=== PATIENT | female | born 1975 | race Caucasian/White ===

== ENCOUNTER 2017-05-23 15:30 | Emergency (ER) | payer MEDICAID ==
[~2017-05-23] VITALS: Ht 165.1 cm; Wt 82.6 kg
[~2017-05-23 15:30] MED LIST: ALBUTEROL2 PUFFS/17 IN; APAP/BUTALBITAL1 TA1 PO; ATIVAN1 M1 PO; CIPRO 500MG TA500 MG PO; CLINDAMYCIN HC150 MG PO; DARVOCET-N 1001 EACH PO; DIFLUCAN150 MG PO; DOXYCYCLINE HY100 M3 PO; DOXYCYCLINE150 M1 PO; FLAGYL 500MG.500 MG PO; FLAGYL500 M1 PO; FLEXERIL10 MG PO; IBU-8800 MG PO; IBUPROFEN400 MG PO; INDOCIN25 MG PO; KEFLEX 500MG.500 MG PO; LORTAB 5/500 501 TAB PO; LORTAB 500 MG-71 TAB PO; MEDROL 4MG. DOSE4 MG PO; Monodox100 MG PO; NOMEDS; ONE DAILY WOMEN1 TAB PO; PERCOCET 325 MG1 TA3 PO; PHENERGAN 25MG.25 M1 PO; PYRIDIUM 200MG200 MG PO; SULFAMETHOXAZOL1 TA6 PO; TESSALON PERLE200 MG PO; TORADOL10 M1 PO; ULTRAM 50 MG TA50 MG PO; VIBRAMYCIN 100100 MG PO; VICODIN 5/500 T1 TAB PO; VICODIN 7.5/501 EACH PO; VOLTAREN75 MG PO; XANAX 1MG TABLET1 MG PO; ZITHROMAX Z-PA250 M2 PO; ZYRTEC10 M4 PO
--- OUTSIDE RECORDS SUMMARY | 2017-05-23 16:02 | External Medical Summary Rpt | CCD ---
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 bl e 23 32 IN 00 03 04 00 14 7 CV 10 No Ac DO 37 -0 -1 .0 S 24 t ti ME 80 9- 7- 00 PH 43 Av ve TH 14 20 20 AR ai AC 30 08 08 MA la IN 1 CY bl e 25 23 32 MG CA PS UL E CL 00 02 03 00 30 15 CV 94 No Ac ON 09 -2 -2 .0 S 72 t ti AZ 30 0- 6- 00 PH 38 Av ve EP 83 20 20 AR ai AM 20 08 08 MA la 1 CY bl 0. e 5 23 MG 32 TA BL ET Vital Signs 06-15-2013 15:14 Name Value Interpretat Reference Comment ion Range Body 98.1 [degF] Temperature BP 94 mm[Hg] Diastolic BP Systolic 143 mm[Hg] Heart 89 /min Rate/Pulse O2% 98 % Respiratory 18 /min Rate 06-15-2013 15:10 Name Value Interpretat Reference Comment ion Range Body 98.1 [degF] Temperature 06-15-2013 13:55 Name Value Interpretat Reference Comment ion Range BP 71 mm[Hg] Diastolic BP Systolic 134 mm[Hg] Heart 76 /min Rate/Pulse O2% 98 % Respiratory 18 /min Rate 05-01-2013 14:53 Name Value Interpretat Reference Comment ion Range BP 92 mm[Hg] Diastolic BP Systolic 136 mm[Hg] Heart 80 /min Rate/Pulse O2% 97 % Respiratory 18 /min Rate 05-01-2013 13:37 Name Value Interpretat Reference Comment ion Range BP 72 mm[Hg] Diastolic BP Systolic 131 mm[Hg] Heart 78 /min Rate/Pulse O2% 95 % Respiratory 20 /min Rate 01-07-2013 23:19 Name Value Interpretat Reference Comment ion Range BP 87 mm[Hg] Diastolic BP Systolic 137 mm[Hg] Heart 102 /min Rate/Pulse O2% 95 % Respiratory 20 /min Rate 01-07-2013 02:52 Name Value Interpretat Reference Comment ion Range BP 76 mm[Hg] Diastolic BP Systolic 119 mm[Hg] Heart 72 /min Rate/Pulse O2% 98 % Respiratory 20 /min Rate 01-07-2013 01:55 Name Value Interpretat Reference Comment ion Range Body 97.9 [degF] Temperature BP 88 mm[Hg] Diastolic BP Systolic 135 mm[Hg] Heart 77 /min Rate/Pulse O2% 94 % Respiratory 20 /min Rate 10-03-2012 13:43 Name Value Interpretat Reference Comment ion Range BP 78 mm[Hg] Diastolic BP Systolic 128 mm[Hg] Heart 90 /min Rate/Pulse O2% 97 % Respiratory 20 /min Rate 10-03-2012 12:38 Name Value Interpretat Reference Comment ion Range BP 85 mm[Hg] Diastolic BP Systolic 109 mm[Hg] Heart 94 /min Rate/Pulse O2% 97 % Respiratory 20 /min Rate Results Labs Lab Lab Date Result Refere Interp Status Commen Order Detail nces retati t Range on CHLAMYDIA AND GONORRHEA TESTING (10-10-2015 13:30) Chlamyd NEGATIV complet ia 016 E ed trachom 13:30 atis rRNA [Presen ce] in Unspeci fied specime n by Probe & target amplifi cation method Neisser NEGATIV complet ia 016 E ed gonorrh 13:30 oeae rRNA [Presen ce] in Unspeci fied specime n by Probe & target amplifi cation method CHLAMYDIA AND GONORRHEA TESTING (10-10-2015 13:30) COLLECT PATIENT complet OR 016 /[id number] ed 13:30 ETHNICI WHITE, complet TY 016 NON-HIS ed 13:30 PANIC KIT 04-27-2 complet EXPIRAT 016 016 ed ION 13:30 DATE SYMPTOM NO complet S 016 ed 13:30 REASON VOLUNTE complet FOR 016 ER/MEDI ed REQUEST 13:30 KATELYN PROBLEM SPECIME URINE complet N 016 ed SOURCE 13:30 PREGNAN NO complet T 016 ed 13:30 CHART NA complet NUMBER 016 ed 13:30 Chlamyd Pending complet ia 016 ed trachom 13:30 atis rRNA [Presen ce] in Unspeci fied specime n by Probe & target amplifi cation method Neisser Pending complet ia 016 ed gonorrh 13:30 oeae rRNA [Presen ce] in Unspeci fied specime n by Probe & target amplifi cation method COMPREHENSIVE METABOLIC PANEL (06-15-2013 13:30) Glucose 105 74-106 complet 013 mg/dL ed Bld-mCn 13:30 c BUN 9 mg/dL 7-18 complet Bld-mCn 013 ed c 13:30 Creat 0.9 0.6-1.0 complet SerPl-m 013 mg/dL ed Cnc 13:30 Creat 120 50-200 complet Cl 013 ML/MIN ed predict 13:30 ed SerPl C-G-vRa te GFR/BSA 70 59- complet .pred 013 ML/MIN ed SerPl 13:30 Schwart z-vRate Sodium 142 136-145 complet SerPl-s 013 mmoL/L ed Cnc 13:30 Potassi 3.6 3.5-5.1 complet um 013 mmoL/L ed SerPl-s 13:30 Cnc Chlorid 06-15-2 103 98-107 complet e 013 mmoL/L ed SerPl-s 13:30 Cnc CO2 06-15-2 30 21.0-32 complet SerPl-s 013 mmoL/L .0 ed Cnc 13:30 Calcium 06-15-2 9.3 8.5-10. complet 013 mg/dL 1 ed SerPl-m 13:30 Cnc Prot 06-15-2 8.8 6.4-8.2 complet SerPl-m 013 gm/dL ed Cnc 13:30 Albumin 06-15-2 4.5 3.4-5.0 complet 013 gm/dL ed SerPl-m 13:30 Cnc Globuli 06-15-2 4.3 1.3-3.2 complet n 013 gm/dL ed Ser-mCn 13:30 c Albumin 06-15-2 1.0 UNK 1.1-1.8 complet /Glob 013 ed SerPl-m 13:30 Rto Bilirub 06-15-2 0.5 0.2-1.0 complet 013 mg/dL ed SerPl-m 13:30 Cnc AST 06-15-2 163 U/L 15-37 complet SerPl-c 013 ed Cnc 13:30 ALT 06-15-2 304 U/L 30-65 High complet SerPl-c 013 alert ed Cnc 13:30 ALP 06-15-2 154 U/L 50-136 complet SerPl-c 013 ed Cnc 13:30 LIPASE (06-15-2013 13:30) LIPASE 06-15-2 144 U/L 73-393 complet 013 ed 13:30 CBC with AUTO DIFF (06-15-2013 13:30) WBC # 19-2 8.9 4.8-10. complet Bld 013 K/MM3 8 ed Auto 13:30 RBC # 06-15-2 4.75 4.2-5.4 complet Bld 013 M/mm3 ed Auto 13:30 Hgb 06-15-2 14.8 12.2-16 complet Bld-mCn 013 g/dL .2 ed c 13:30 Hct Fr 06-15- 41.9 % 37.0-47 complet Bld 013 .0 ed 13:30 MCV RBC 06-15- 88.2 fl 82.2-97 complet 013 .8 ed 13:30 MCH RBC 12-19-2 31.2 pg 27-31.2 complet Qn 013 ed Auto 13:30 MEAN 12-19-2 35.3 31.8-35 complet CORPUSC 013 g/dl .4 ed ULAR 13:30 HGB CONC RDW RBC 12-19-2 13.3 % 11.5-17 complet Auto 013 .5 ed 13:30 Platele 12-19-2 420 142-424 complet t Bld 013 K/mm3 ed Ql 13:30 Manual MEAN 12-19-2 7.7 fl 7.4-10. complet PLATELE 013 4 ed T 13:30 VOLUME Granulo 12-19-2 65.2 % 37.0-80 complet cytes 013 .0 ed Fr Bld 13:30 Auto LYMPH % 12-19-2 28.3 % 10-50.0 complet 013 ed 13:30 Monocyt 12-19-2 4.8 % 1.7-9.3 complet es Fr 013 ed Bld 13:30 Auto Eosinop 12-19-2 1.0 % 0.1-12. complet hil Fr 013 0 ed Bld 13:30 Auto Basophi 12-19-2 0.6 % 0.1-2.0 complet ls Fr 013 ed Bld 13:30 Auto Granulo 12-19-2 5.8 1.8-7.8 complet cytes # 013 K/mm3 ed Bld 13:30 Auto Lymphoc 12-19-2 2.5 0.7-4.5 complet ytes Fr 013 K/mm3 ed Bld 13:30 Auto Monocyt 12-19-2 0.4 0.1-1.0 complet es # 013 K/mm3 ed Bld 13:30 Auto Eosinop 12-19-2 0.1 0.0-0.4 complet hil # 013 K/mm3 ed Bld 13:30 Auto Basophi 12-19-2 0.1 0-0.2 complet ls # 013 K/MM3 ed Bld 13:30 Auto URINALYSIS/COMPLETE (06-15-2013 13:30) URINE 12-19-2 YELLOW YELLOW complet COLOR 013 ed 13:30 URINE 12-19-2 CLEAR CLEAR complet APPEARA 013 ed NCE 13:30 URINE 12-19-2 NEGATIV NEG complet GLUCOSE 013 E ed - 13:30 DIPSTIC K URINE 12-19-2 NEGATIV NEG complet BILIRUB 013 E ed IN - 13:30 DIPSTIC K URINE 12-19-2 NEGATIV NEG complet KETONE 013 E mg/dL ed 13:30 URINE 12-19-2 1.025 1.005-1 complet SPECIFI 013 UNK .030 ed C 13:30 GRAVITY URINE -19-2 NEGATIV NEG complet BLOOD 013 E ed 13:30 URINE 12-19-2 6.5 UNK 5.0-8.5 complet PH 013 ed 13:30 URINE 12-19-2 NEGATIV NEG complet PROTEIN 013 E mg/dL ed - 13:30 DIPSTIC K URINE 12-19-2 0.2 NEG complet UROBILI 013 E.U./dL ed NOGEN - 13:30 DIPSTIC K URINE 12-19-2 POSITIV NEG complet NITRATE 013 E ed - 13:30 DIPSTIC K URINE 12-19-2 TRACE NEG complet LEUK 013 ed ESTERAS 13:30 E URINE 12-19-2 3-5 0 complet RBC 013 rbc/hpf ed 13:30 URINE 12-19-2 3-5 O complet WBC 013 wbc/hpf ed 13:30 URINE 12-19-2 5-10 0-5 complet SQUAMOU 013 #/hpf ed S CELLS 13:30 URINE 12-19-2 4+ O complet BACTERI 013 ed A 13:30 COMPREHENSIVE METABOLIC PANEL (05-01-2013 13:00) Glucose 86 74-106 complet 013 mg/dL ed Bld-mCn 13:00 c BUN 10 7-18 complet Bld-mCn 013 mg/dL ed c 13:00 Creat 0.7 0.6-1.0 complet SerPl-m 013 mg/dL ed Cnc 13:00 GFR 94 59- complet (ESTIMA 013 ML/MIN ed TANNER) 13:00 Sodium 141 136-145 complet SerPl-s 013 mmoL/L ed Cnc 13:00 Potassi 3.9 3.5-5.1 complet um 013 mmoL/L ed SerPl-s 13:00 Cnc Chlorid 107 98-107 complet e 013 mmoL/L ed SerPl-s 13:00 Cnc CO2 11-04-2 27 21.0-32 complet SerPl-s 013 mmoL/L .0 ed Cnc 13:00 Calcium 05-01-2 8.5 8.5-10. complet 013 mg/dL 1 ed SerPl-m 13:00 Cnc Prot 05-01-2 7.4 6.4-8.2 complet SerPl-m 013 gm/dL ed Cnc 13:00 Albumin 05-01-2 3.6 3.4-5.0 complet 013 gm/dL ed SerPl-m 13:00 Cnc Globuli 05-01-2 3.8 1.3-3.2 complet n 013 gm/dL ed Ser-mCn 13:00 c Albumin 05-01-2 0.9 UNK 1.1-1.8 complet /Glob 013 ed SerPl-m 13:00 Rto Bilirub 05-01-2 0.3 0.2-1.0 complet 013 mg/dL ed SerPl-m 13:00 Cnc AST 05-01-2 25 U/L 15-37 complet SerPl-c 013 ed Cnc 13:00 ALT 05-01-2 94 U/L 30-65 complet SerPl-c 013 ed Cnc 13:00 ALP 05-01-2 117 U/L 50-136 complet SerPl-c 013 ed Cnc 13:00 LIPASE (05-01-2013 13:00) LIPASE 05-01-2 76 U/L 73-393 complet 013 ed 13:00 CBC with AUTO DIFF (05-01-2013 13:00) WBC # 04-2 6.2 4.8-10. complet Bld 013 K/mm3 8 ed Auto 13:00 RBC # 11-04-2 4.15 4.2-5.4 complet Bld 013 M/mm3 ed Auto 13:00 Hgb 05-01-2 12.2 12.2-16 complet Bld-mCn 013 g/dL .2 ed c 13:00 Hct Fr 39.1 % 37.0-47 complet Bld 013 .0 ed 13:00 MCV RBC 94.3 fL 82.2-97 complet 013 .8 ed 13:00 MCH RBC 05-01-2 29.4 pg 27-31.2 complet Qn 013 ed Auto 13:00 MEAN 31.2 31.8-35 complet CORPUSC 013 g/dl .4 ed ULAR 13:00 HGB CONC RDW RBC 13.0 % 11.5-17 complet Auto 013 .5 ed 13:00 Platele 289 142-424 complet t Bld 013 K/mm3 ed Ql 13:00 Manual Granulo 55.1 % 37.0-80 complet cytes 013 .0 ed Fr Bld 13:00 Auto LYMPH % 05-01-2 40.3 % 10-50.0 complet 013 ed 13:00 Monocyt 05-01-2 4.6 % 1.7-9.3 complet es Fr 013 ed Bld 13:00 Auto Eosinop 05-01-2 0.0 % 0.1-12. complet hil Fr 013 0 ed Bld 13:00 Auto Basophi 05-01-2 0.0 % 0.1-2.0 complet ls Fr 013 ed Bld 13:00 Auto Granulo 05-01-2 3.4 1.8-7.8 complet cytes # 013 K/mm3 ed Bld 13:00 Auto Lymphoc 05-01-2 2.5 0.7-4.5 complet ytes Fr 013 K/mm3 ed Bld 13:00 Auto Monocyt 05-01-2 0.3 0.1-1.0 complet es # 013 K/mm3 ed Bld 13:00 Auto Eosinop 05-01-2 0.0 0.0-0.4 complet hil # 013 K/mm3 ed Bld 13:00 Auto Basophi 05-01-2 0.0 0-0.2 complet ls # 013 K/mm3 ed Bld 13:00 Auto B-HCG Ur Ql (05-01-2013 12:35) B-HCG NEGATIV NEG complet Ur Ql 013 E ed 12:35 URINALYSIS/COMPLETE (05-01-2013 12:35) URINE YELLOW YELLOW complet COLOR 013 ed 12:35 URINE 05-01-2 CLEAR CLEAR complet APPEARA 013 ed NCE 12:35 URINE NEGATIV NEG complet GLUCOSE 013 E ed - 12:35 DIPSTIC K URINE NEGATIV NEG complet BILIRUB 013 E ed IN - 12:35 DIPSTIC K URINE NEGATIV NEG complet KETONE 013 E mg/dL ed 12:35 URINE 1.015 1.005-1 complet SPECIFI 013 UNK .030 ed C 12:35 GRAVITY URINE 1+ NEG complet BLOOD 013 ed 12:35 URINE 6.0 UNK 5.0-8.5 complet PH 013 ed 12:35 URINE 2 NEGATIV NEG complet PROTEIN 013 E mg/dL ed - 12:35 DIPSTIC K URINE 2 0.2 NEG complet UROBILI 013 E.U./dL ed NOGEN - 12:35 DIPSTIC K URINE NEGATIV NEG complet NITRATE 013 E ed - 12:35 DIPSTIC K URINE NEGATIV NEG complet LEUK 013 E ed ESTERAS 12:35 E URINE 10-20 0 complet RBC 013 rbc/hpf ed 12:35 URINE OCC O complet WBC 013 wbc/hpf ed 12:35 URINE 05-01-2 OCC 0-5 complet SQUAMOU 013 #/hpf ed S CELLS 12:35 STREP SCREEN (RAPID) (01-07-2013 02:26) STREP NEGATIV complet SCREEN 013 E ed (RAPID) 02:26 COMPREHENSIVE METABOLIC PANEL (01-07-2013 00:47) Glucose 95 74-106 complet 013 mg/dL ed Bld-mCn 00:47 c BUN 11 7-18 complet Bld-mCn 013 mg/dL ed c 00:47 Creat 0.8 0.6-1.0 complet SerPl-m 013 mg/dL ed Cnc 00:47 GFR 81 59- complet (ESTIMA 013 ML/MIN ed TANNER) 00:47 Sodium 140 136-145 complet SerPl-s 013 mmoL/L ed Cnc 00:47 Potassi 4.3 3.5-5.1 complet um 013 mmoL/L ed SerPl-s 00:47 Cnc Chlorid 105 98-107 complet e 013 mmoL/L ed SerPl-s 00:47 Cnc CO2 07-13-2 30 21.0-32 complet SerPl-s 013 mmoL/L .0 ed Cnc 00:47 Calcium 01-07-2 8.4 8.5-10. complet 013 mg/dL 1 ed SerPl-m 00:47 Cnc Prot 13-2 7.4 6.4-8.2 complet SerPl-m 013 gm/dL ed Cnc 00:47 Albumin 01-07-2 3.8 3.4-5.0 complet 013 gm/dL ed SerPl-m 00:47 Cnc Globuli 01-07-2 3.6 1.3-3.2 complet n 013 gm/dL ed Ser-mCn 00:47 c Albumin 01-07-2 1.1 UNK 1.1-1.8 complet /Glob 013 ed SerPl-m 00:47 Rto Bilirub 01-07-2 0.4 0.2-1.0 complet 013 mg/dL ed SerPl-m 00:47 Cnc AST 01-07-2 45 U/L 15-37 complet SerPl-c 013 ed Cnc 00:47 ALT 01-07-2 98 U/L 30-65 complet SerPl-c 013 ed Cnc 00:47 ALP 01-07-2 174 U/L 50-136 complet SerPl-c 013 ed Cnc 00:47 B-HCG Ur Ql (01-07-2013 00:47) B-HCG 01-07-2 NEGATIV NEG complet Ur Ql 013 E ed 00:47 URINALYSIS/COMPLETE (01-07-2013 00:47) URINE 01-07-2 YELLOW YELLOW complet COLOR 013 ed 00:47 URINE 01-07-2 Sl CLEAR complet APPEARA 013 Cloudy ed NCE 00:47 URINE -13-2 NEGATIV NEG complet GLUCOSE 013 E ed - 00:47 DIPSTIC K URINE 13-2 NEGATIV NEG complet BILIRUB 013 E ed IN - 00:47 DIPSTIC K URINE -13-2 NEGATIV NEG complet KETONE 013 E mg/dL ed 00:47 URINE -13-2 1.015 1.005-1 complet SPECIFI 013 UNK .030 ed C 00:47 GRAVITY URINE 01-07-2 NEGATIV NEG complet BLOOD 013 E ed 00:47 URINE 13-2 6.0 UNK 5.0-8.5 complet PH 013 ed 00:47 URINE NEGATIV NEG complet PROTEIN 013 E mg/dL ed - 00:47 DIPSTIC K URINE 1.0 NEG complet UROBILI 013 E.U./dL ed NOGEN - 00:47 DIPSTIC K URINE NEGATIV NEG complet NITRATE 013 E ed - 00:47 DIPSTIC K URINE NEGATIV NEG complet LEUK 013 E ed ESTERAS 00:47 E URINE 50-100 0-5 complet SQUAMOU 013 #/hpf ed S CELLS 00:47 URINE 1+ O complet BACTERI 013 ed A 00:47 Procedures Procedure DOS Code Location Performer Comment [facility] 8604 JUAN JOSE INGRAM INCISION 0 [facility] HOSP W/DRAINAG [facility] INC E SKIN&SUBC UTANEOUS TISSUE Encounters Encounter Start End Date Code Location Performer Type Date [facility] JUAN JOSE - 7 7 [facility] [address] [facility] - [address] [facility] - 4 4 [facility] Emergency PRISCA Webb (ER) 3 13:31 3 15:20 [facility] Ez E. Emergency PRISCA Webb (ER) 3 12:30 3 14:56 [facility] Ez E. Emergency PRISCA Rendon MD (ER) 3 22:59 3 23:20 [facility] Emergency PRISCA Rendon MD (ER) 3 00:30 3 02:53 [facility] Emergency PRISCA ALBERTS MD (ER) 3 11:56 3 13:47 [facility] JUAN JOSE - 3 3 [facility] JUAN JOSE - 3 3 [facility] JUAN JOSE - 2 2 [facility] - 2 2 [facility] - 2 2 [facility] - 1 1 [facility] JOSE - 1 1 [facility] JOSE - 1 1 [facility] JOSE - 1 1 [facility] JOSE - 0 0 [facility] JOSE - 0 0 [facility] - 0 0 [facility] - 9 N [facility] JUAN JOSE - 9 9 [facility] - 9 N [facility] - 8 N [facility] [place] [id number] [address] [facility] JUAN JOSE - 8 8 [facility]
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
--- OUTSIDE RECORDS SUMMARY | 2017-05-23 16:03 | External Medical Summary Rpt | CCD ---
Author Author Conduent Organization Conduent Address Unknown Phone Unavailable Purpose Continuity of Care Document - through 2016
--- OUTSIDE RECORDS SUMMARY | 2017-05-23 16:03 | External Medical Summary Rpt ---
Author Author ZEYAD Wilde, [employer] Organization [employer] Address Unknown Phone Unavailable Results Chlamydia/GC Amplification Observa Value Referen Units Interpr Notes Date tion ce etation Range Chlamyd Negativ Negativ No No No Nov 28 ia e e informa informa informa 2017 trachom tion in tion in tion in 2:00 PM atis source source source rRNA data data data [Presen ce] in Unspeci fied specime n by Probe & target amplifi cation method Neisser Negativ Negativ No No Perform Nov 28 ia e e informa informa ed at: 2017 gonorrh tion in tion in CB - 2:00 PM oeae source source [facility] rRNA data data [Presen [place] ce] in [address], specime [place], [place] Probe & [id number] target 69Lab Directo amplifi r: cation Vincent [facility], Phone: [phone] CHLAMYDIA AND GONORRHEA TESTING Observa Value Referen Units Interpr Notes Date tion ce etation Range COLLECT PATIENT No No No No Oct 09 OR /C3881 informa informa informa informa 2016 tion in tion in tion in tion in 1:30 PM source source source source data data data data ETHNICI WHITE, No No No No Oct 09 TY NON-HIS informa informa informa informa 2016 PANIC tion in tion in tion in tion in 1:30 PM source source source source data data data data KIT 10-31-2 No No No No Oct 09 EXPIRAT 016 informa informa informa informa 2016 ION tion in tion in tion in tion in 1:30 PM DATE source source source source data data data data SYMPTOM NO No No No No Oct 09 S informa informa informa informa 2016 tion in tion in tion in tion in 1:30 PM source source source source data data data data REASON VOLUNTE No No No No Apr 14 FOR ER/MEDI informa informa informa informa 2016 REQUEST KATELYN tion in tion in tion in tion in 1:30 PM PROBLEM source source source source data data data data SPECIME URINE No No No No Sep 14 N informa informa informa informa 2016 SOURCE tion in tion in tion in tion in 1:30 PM source source source source data data data data PREGNAN NO No No No No Oct 09 T informa informa informa informa 2016 tion in tion in tion in tion in 1:30 PM source source source source data data data data CHART NA No No No No Sep 14 NUMBER informa informa informa informa 2016 tion in tion in tion in tion in 1:30 PM source source source source data data data data Chlamyd NEGATIV No No No NEGATIV Oct 09 ia E informa informa informa E 2016 trachom tion in tion in tion in RESULT= 1:30 PM atis source source source WITHIN rRNA data data data NORMAL [Presen ce] in LIMITSP Unspeci OSITIVE fied specime RESULT= n by Probe & ABNORMA target LEQUIVO KATELYN amplifi RESULT= cation method INDETER MINATEU NSATISF ACTORY RESULT= INVALID Neisser NEGATIV No No No NEGATIV Oct 09 ia E informa informa informa E 2016 gonorrh tion in tion in tion in RESULT= 1:30 PM oeae source source source WITHIN rRNA data data data NORMAL [Presen ce] in LIMITSP Unspeci OSITIVE fied specime RESULT= n by Probe & ABNORMA target LEQUIVO KATELYN amplifi RESULT= cation method INDETER MINATEU NSATISF ACTORY RESULT= INVALID THE APTIMA COMBO 2 ASSAY IS NOT INTENDE D FOR THE EVALUAT ION OF SUSPECT EDSEXUA L ABUSE OR FOR OTHER MEDICO- LEGAL INDICAT IONS. FOR THOSE PATIENT S FORWHOM A FALSE POSITIV E RESULT MAY HAVE ADVERSE PSYCHO- SOCIAL IMPACT, THE CDCRECO MMENDS RETESTI NG.\.br \This report contain s patient informa tion that must be protect ed in accorda nce with the Health Insuran ce Portabi lity and Account ability Act. CHLAMYDIA AND GONORRHEA TESTING Observa Value Referen Units Interpr Notes Date tion ce etation Range COLLECT PATIENT No No No No Oct 09 OR /C3881 informa informa informa informa 2016 tion in tion in tion in tion in 1:30 PM source source source source data data data data ETHNICI WHITE, No No No No Sep 14 TY NON-HIS informa informa informa informa 2016 PANIC tion in tion in tion in tion in 1:30 PM source source source source data data data data KIT 10-31-2 No No No No Oct 09 EXPIRAT 016 informa informa informa informa 2016 ION tion in tion in tion in tion in 1:30 PM DATE source source source source data data data data SYMPTOM NO No No No No Oct 09 S informa informa informa informa 2016 tion in tion in tion in tion in 1:30 PM source source source source data data data data REASON VOLUNTE No No No No Oct 09 FOR ER/MEDI informa informa informa informa 2016 REQUEST KATELYN tion in tion in tion in tion in 1:30 PM PROBLEM source source source source data data data data SPECIME URINE No No No No Oct 09 N informa informa informa informa 2016 SOURCE tion in tion in tion in tion in 1:30 PM source source source source data data data data PREGNAN NO No No No No Oct 09 T informa informa informa informa 2016 tion in tion in tion in tion in 1:30 PM source source source source data data data data CHART NA No No No No Oct 09 NUMBER informa informa informa informa 2016 tion in tion in tion in tion in 1:30 PM source source source source data data data data Chlamyd Pending No No No No Oct 09 ia informa informa informa informa 2016 trachom tion in tion in tion in tion in 1:30 PM atis source source source source rRNA data data data data [Presen ce] in Unspeci fied specime n by Probe & target amplifi cation method Neisser Pending No No No \.br\Oct 09 ia informa informa informa is 2016 gonorrh tion in tion in tion in report 1:30 PM oeae source source source contain rRNA data data data s [Presen patient ce] in Unspeci informa fied tion specime that n by must be Probe & target protect ed in amplifi [place] cation nce method with the Health Insuran ce Portabi lity and Account ability Act.
--- OUTSIDE RECORDS SUMMARY | 2017-05-23 16:03 | External Medical Summary Rpt | CCD ---
Demographics Preferred Language American Marital Status Unknown Samaritan Affiliation Unknown Race Unknown Ethnic Group Unknown Author Author , ZEYAD JEFFERS Address Unknown Phone Immunization No patient found.
--- OUTSIDE RECORDS SUMMARY | 2017-05-23 16:03 | External Medical Summary Rpt | CCD ---
Demographics Preferred Language Martiniquais Marital Status Unknown Sikhism Affiliation Unknown Race Unknown Ethnic Group Unknown Author Author , ZEYAD JEFFERS Address Unknown Phone Immunization No patient found.
--- OUTSIDE RECORDS SUMMARY | 2017-05-23 16:03 | External Medical Summary Rpt ---
[...] [Presen [place] ce] in [address], specime [place], [place] Probe & [id number] target 69Lab Directo amplifi r: cation Vincent method [facility] PhD, Phone: [phone] CHLAMYDIA AND GONORRHEA TESTING Observa Value [...] Probe & target protect ed in amplifi deltaa cation nce method with the Health Insuran ce Portabi lity and Account ability Act.
[2017-05-23] MEDS ORDERED: BUSPAR 10MG TAB10 MG PO (16:58)
[2017-05-23] MEDS ORDERED: HYDROXYZINE HCL25 M1 PO (16:58)
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
[2017-05-23 17:14] VITALS: BP 148/88
== END 2017-05-23 17:16 | disposition home or self-care (01) ==
LOC: ER 15:30
DX: F41.9 Anxiety disorder, unspecified (principal); Z88.0 Allergy status to penicillin; Z88.6 Allergy status to analgesic agent; I10 Essential (primary) hypertension; F17.210 Nicotine dependence, cigarettes, uncomplicated

== ENCOUNTER 2017-06-07 04:45 | Emergency (ER) | payer MEDICAID ==
[~2017-06-07] VITALS: Ht 165.1 cm; Wt 81.6 kg
[~2017-06-07 04:45] MED LIST changes: +BUSPAR 10MG TAB10 MG PO; +HYDROXYZINE HCL25 M1 PO
--- OUTSIDE RECORDS SUMMARY | 2017-06-07 05:16 | External Medical Summary Rpt | CCD ---
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 0.2-1.0 complet 013 mg/dL ed SerPl-m 00:47 Cnc AST 45 U/L 15-37 complet SerPl-c 013 ed Cnc 00:47 ALT 98 U/L 30-65 complet SerPl-c 013 ed Cnc 00:47 ALP 174 U/L 50-136 complet SerPl-c 013 ed Cnc 00:47 B-HCG Ur Ql (01-07-2013 00:47) B-HCG 01-07-2 NEGATIV NEG complet Ur Ql 013 E ed 00:47 URINALYSIS/COMPLETE (01-07-2013 00:47) URINE 01-07-2 YELLOW YELLOW complet COLOR 013 ed 00:47 URINE 01-07-2 Sl CLEAR complet APPEARA 013 Cloudy ed NCE 00:47 URINE 01-07-2 NEGATIV NEG complet GLUCOSE 013 E ed - 00:47 DIPSTIC K URINE 01-07- NEGATIV NEG complet BILIRUB 013 E ed IN - 00:47 DIPSTIC K URINE 01-07-2 NEGATIV NEG complet KETONE 013 E mg/dL ed 00:47 URINE 01-07-2 1.015 1.005-1 complet SPECIFI 013 UNK .030 ed C 00:47 GRAVITY URINE NEGATIV NEG complet BLOOD 013 E ed 00:47 URINE 01-07-2 6.0 UNK 5.0-8.5 complet PH 013 ed 00:47 URINE 01-07- NEGATIV NEG complet PROTEIN 013 E mg/dL ed - 00:47 DIPSTIC K URINE 1.0 NEG complet UROBILI 013 E.U./dL ed NOGEN - 00:47 DIPSTIC K URINE NEGATIV NEG complet NITRATE 013 E ed - 00:47 DIPSTIC K URINE NEGATIV NEG complet LEUK 013 E ed ESTERAS 00:47 E URINE 01-07- 50-100 0-5 complet SQUAMOU 013 #/hpf ed S CELLS 00:47 URINE 1+ O complet BACTERI 013 ed A 00:47 Procedures Procedure DOS Code Location Performer Comment [facility] TRACHOMAT SCO SCO IS AMPLIFIED PROBE TQ CYTP 14346 [facility], PICKLESIM CERV/VAG 7 [facility] ER JR AUTO THIN LAYER PREP MNL SCREEN IADNA 88867 GOSIAGA GOSIACO NEISSERIA 7 [facility] DEPT TH DEPT GONORRHOE SCO SCO AE AMPLIFIED PROBE TQ CULTURE 63530 [facility] INGRAM BACTERIAL 7 [facility] INC INC QUANTTATI VE COLONY COUNT URINE SMR PRIM 56860 [facility] INGRAM SRC WET 7 [facility] MOUNT INC INC NFCT AGT URNLS DIP 77242 [facility] INGRAM 7 [facility] STICK/TAB INC INC LET REAGENT AUTO MICROSCOP Y RADEX 08685 [facility] [place] SON[place] SPINE 6 RADIOLOGY III [place] CERVICAL 2 OR 3 VIEWS INJECTION J1885 [facility] 6 N N KETOROLAC COMMUNTIY [facility]TIY [facility] PER 15 MG INJECTION J2360 [facility] 6 N N ORPHENADR COMMUNTIY COMMUNTIY [facility]OS[facility] HOSPITA CITRATE UP TO 60 MG AMB A0427 [facility] SERVICE 6 [facility] EMERGENCY EMS EMS TRANSPORT LEVEL 1 GROUND A0425 [facility] MILEAGE 6 [facility] MILE ANES 12802 MARIBELL MINA INTEG 6 ANESTHESI SAEED EXTREMITI A GROUP ES ANT PS TRUNK & PERINEUM NOS EXCISON 61223 [facility] ALYCIA TUMOR 6 PHYSICIAN SOFT PRACTICE TISSUE L THIGH/KNE E SUBQ 3 CM/> LEVEL III 49356 [facility], RIGO TER SURG 6 LLC PATHOLOGY GROSS&ARIANNA ROSCOPIC EXAM AMB A0427 [facility] SERVICE 4 AMBULANCE AMBULANCE ALS SERVICE SERVICE EMERGENCY TRANSPORT LEVEL 1 GROUND A0425 [facility] MILEAGE 4 AMBULANCE AMBULANCE PER SERVICE SERVICE STATUTE MILE URNLS DIP 49293 [facility] 4 Y Y STICK/TAB [facility] LET RGNT AUTO W/O MICROSCOP Y URINE 40339 [facility] 4 Y Y TEST [facility] [place] [address] [place] BOOM [place]AM ABDOMINAL 4 MEDICAL REAL SERV TIME FOUNDATIO W/IMAGE LIMITED LAPAROSCO 48885 [place] TOBAR PHI PY SURG 4 MEDICAL CHOLECYST SERV ECTOMY FOUNDATIO ANES 91802 [place] INTRAPERI 4 MEDICAL MEDICAL TONEAL SERV SERV UPPER FOUNDATIO FOUNDATIO ABDOMEN W/LAPS NOS LEVEL III 61284 [facility] ALLIANCE CORNEA SURG 4 Y OF VIR PATHOLOGY [place] [facility] GROSS&[place] [address] MARIBELL BEINEKE ABDOMEN & 4 MEDICAL HANG PELVIS IMAGING W/[place] [address] [place] JAMES ABDOMINAL 4 MEDICAL MICHAEL REAL SERV TIME FOUNDATIO W/IMAGE LIMITED 3D 33142 MARIBELL BRIAN RENDERING 3 MEDICAL DEANNA IMAGING W/INTERP& [place] [address] MARIBELL BRIAN ABDOMEN & 3 MEDICAL DEANNA PELVIS IMAGING W/CONTRAS ASS T MATERIAL CT SOFT 16603 MARIBELL BRIAN TISSUE 3 MEDICAL DEANNA NECK IMAGING W/CONTRAS ASS T MATERIAL 3D 69444 MARIBELL BRIAN RENDERING 3 MEDICAL DEANNA IMAGING W/INTERP& ASS POSTPROC DIFF WORK STATION BLOOD 73948 [facility] INGARM COUNT 3 [facility] COMPLETE INC INC AUTO&AUTO DIFRNTL WBC URNLS DIP 13918 [facility] INGRAM 3 [facility] STICK/TAB INC [place] [address] [facility] INGRAM ABDOMEN & 3 [facility] PELVIS INC INC W/O CONTRAST MATERIAL URINE 64187 [facility] INGRAM 3 [facility] TEST INC INC VISUAL COLOR CMPRSN METHS 3D 90024 [facility] INGRAM RENDERING 3 [facility] INC INC W/INTERP& POSTPROC DIFF WORK STATION IAADI 47259 [facility] INGRAM INFLUENZA 3 [facility] B VIRUS INC INC IAADI 45018 [facility] INGRAM INFFLUENZ 3 [facility] A A VIRUS INC INC RADIOLOGI 39016 [facility] INGRAM C EXAM 3 [facility] CHEST 2 INC INC VIEWS FRONTAL&L ATERAL COMPREHEN 95504 [facility] INGRAM SIVE 3 [facility] METABOLIC INC INC PANEL PRESSURIZ 29851 [facility] INGRAM ED/NONPRE 3 [facility] SSURIZED [place] [address] [facility] INGRAM INFUSION 3 [facility] THERAPY/P INC INC ROPHYLAXI S /DX 1ST TO 1 [place] [address] [facility] INGRAM INFUSION 3 [facility] THER INC INC PROPH ADDL SEQUENTIA L TO 1 HR PRESSURIZ 35019 [facility] INGRAM ED/NONPRE 2 [facility] SSURIZED INC INC INHALATIO N TREATMENT RADIOLOGI 98964 [facility] INGRAM C EXAM 2 [facility] CHEST 2 INC INC VIEWS FRONTAL&[place] [address] JUAN JOSE INGRAM STREPTOCO 2 [facility] CCUS INC INC GROUP A IAADI 88703 JU[facility] JOSE INGRAM INFFLUENZ 2 [facility] A A VIRUS INC INC IAADI 10521 [facility] INGRAM INFLUENZA 2 [facility] B VIRUS INC INC SMR PRIM 23702 [facility] INGRAM SRC WET 2 [facility] MOUNT INC INC NFCT AGT URINE 33340 [facility] INGRAM 2 [facility] TEST INC INC VISUAL COLOR CMPRSN METHS CULTURE 36657 [facility] INGRAM BCT 2 [facility] ISOL&PRSM INC INC PTV ID ISOLATE EA URINE CULTURE 40486 [facility] INGRAM BACTERIAL 2 [facility] INC INC QUANTTATI VE COLONY COUNT URINE SUSCEPTIB 55769 [facility] INGRAM LTY STDY 2 [facility] ANTIMICRB INC INC IAL MICRO/AGA R DILUTJ URNLS DIP 83993 [facility] INGRAM 2 [facility] STICK/TAB INC [place] [address] [facility] INGRAM MAXILLOFA 1 [facility] CIAL W/O INC INC CONTRAST MATERIAL 3D 61393 [facility] INGRAM RENDERING 1 [facility] INC INC W/INTERP& POSTPROC DIFF WORK STATION CLOSED 05365 [facility] TREATMENT 1 EMERGENCY ARIANNA NASAL SERVICES FRACTURE W/O MANIPULAT ION 3D 40809 [place] [facility]RI[place] RENDERING 1 MEDICAL DEANNA IMAGING W/INTERP& [place] [address] [place] MAXILLOFA 1 MEDICAL DEANNA CIAL W/O IMAGING CONTRAST ASS MATERIAL RADIOLOGI 15017 [facility] [place] PASTORA MAT C EXAM 1 RADIOLOGY CHEST 2 VIEWS FRONTAL&[place] [address] [facility] [place] SYBIL BAR HEAD/BRAI 1 RADIOLOGY N W/O CONTRAST MATERIAL IADNA 24998 PATHOLOGY PATHOLOGY NEISSERIA 1 & & CYTOLOGY CYTOLOGY GONORRHOE LAB LAB AE AMPLIFIED PROBE TQ CYTP C/V 75060 PATHOLOGY PATHOLOGY AUTO THIN 1 & & LYR CYTOLOGY CYTOLOGY PREPJ SCR LAB LAB MNL RESCR PHYS IADNA 00854 PATHOLOGY PATHOLOGY CHLAMYDIA 1 & & CYTOLOGY CYTOLOGY TRACHOMAT LAB LAB IS AMPLIFIED PROBE TQ SMR PRIM 40945 JEFFREY ELIZABETH JEFFREY ELIZABETH SRC WET 1 MOUNT NFCT AGT ECG 25769 LAURIE ZELAYA ZELAYA LAURIE ROUTINE 0 MD ECG CONSULTIN W/LEAST G SRV 12 LDS I&R ONLY RHYTHM 20197 [facility] INGRAM ECG 1-3 0 [facility] LEADS INC INC TRACING ONLY W/O I&R ECG 65710 [facility] GARCIA, ROUTINE 0 [facility] ECG HOSPITAL W/LEAST PROF SERV 12 LDS I&R ONLY RADIOLOGI 69812 Raymond PHAM 0 MEDICAL SOHAM Corbin EXAMINATI IMAGING ON CHEST ASSOCIATE SINGLE S VIEW FRONTAL CREATINE 95984 [facility] INGRAM KINASE 0 [facility] TOTAL INC INC FIBRIN 78296 [facility] JO[facility] INGRAM DGRADJ 0 [facility] PRODUCTS INC INC D-DIMER QUAL/SEMI HONG ECG 05304 [facility] INGRAM ROUTINE 0 [facility] ECG INC INC W/LEAST 12 LDS TRCG ONLY W/O I&R CREATINE 29163 [facility] INGRAM KINASE MB 0 [facility] FRACTION INC INC ONLY BASIC 74423 [facility] INGRAM METABOLIC 0 [facility] PANEL INC INC CALCIUM TOTAL BLOOD 56400 [facility] INGRAM COUNT 0 [facility] COMPLETE INC INC AUTO&[place] [address] J[facility] INGRAM TROPONIN 0 [facility] QUANTITAT INC INC NOE SUSCEPTIB 55898 [facility] INGRAM LTY STDY 0 [facility] ANTIMICRB INC INC IAL MICRO/AGA R DILUTJ CUL BACT 34201 [facility] INGRAM XCPT 0 [facility] URINE INC INC BLOOD/STO OL AEROBIC ISOL CUL BACT 21508 [facility] INGRAM AEROBIC 0 [facility] ADDL INC INC METHS DEFINITIV E EA ISOL OTH 8604 [facility] INGRAM INCISION 0 [facility] W/DRAINAG INC INC E SKIN&[place] [address] MARIBELL FARRELLCHER, HEAD/BRAI 0 MEDICAL NNEKA N W/[place] [address] MARIBELL BRIAN, CERVICAL 0 MEDICAL NNEKA SPINE W/O IMAGING CONTRAST ASSOCIATE MATERIAL S 3D 26384 MARIBELL FARRELLCHER, RENDERING 0 MEDICAL NNEKA W/INTERP IMAGING & ASSOCI[place] 3D [address] MARIBELL TORRES, RENDERING 0 MEDICAL NNEKA IMAGING W/INTERP& ASSOCIATE POSTPROC S DIFF WORK STATION ECG 51393 LAURIE ZELAYA ZELAYA, ROUTINE 0 MD PAUL Dorman ECG CONSULTIN W/LEAST G SRV PSC 12 LDS I&R ONLY IADNA 70269 [facility] NEISSERIA 9 N N [facility] GONORRHOE [facility] AE DIRECT PROBE TQ INJECTION J0696 [facility] 9 N N CEFTRIAXO [facility] NE [facility] PER 250 MG TISS PERRY 05422 [facility] SLIDE 9 N N SAMPS [facility] SKN/HR/NL [facility] S FNGI/ECTO PARASIT IADNA 49925 [facility] CHLAMYDIA 9 N N [facility] PNEUMONIA [facility] E DIRECT PROBE TQ SMR PRIM 29647 [facility] SRC WET 9 N N [facility] NFCT [facility] URINE 64221 [facility] 9 N N TEST [facility] VISUAL [facility] COLOR CMPRSN METHS URNLS DIP 99041 [facility] 9 N N STICK/TAB [facility] LET [facility] REAGENT AUTO MICROSCOP Y SMR PRIM 62634 JEFFREY, JEFFREY, SRC WET 9 STANLEY Andrade [facility] NFCT AGT IADNA 51255 [facility]ICAL [facility]ICAL CHLAMYDIA 9 [facility]AGNOSTI [facility] TRACHOMAT IS AMPLIFIED PROBE TQ IADNA 40579 [facility]ICAL NEISSERIA 9 DIAGNOSTI DIAGNOSTI [facility] GONORRHOE AE AMPLIFIED PROBE TQ IADNA NOS 18831 MEDICAL MEDICAL 9 DIAGNOSTI DIAGNOSTI AMPLIFIED [facility] PROBE TQ EACH ORGANISM INCISION 48308 PRIYANKA CHIANG, & 9 EMERGENCY NIKKIE R DRAINAGE SERVICES ABSCESS SIMPLE/SI ASSOCIATE NGLE S CYTP C/V 57458 PATHOLOGY PATHOLOGY AUTO THIN 9 & & LYR CYTOLOGY CYTOLOGY PREPJ SCR LAB LAB MNL RESCR PHYS IADNA 61482 PATHOLOGY PATHOLOGY CHLAMYDIA 9 & & CYTOLOGY CYTOLOGY TRACHOMAT LAB LAB IS AMPLIFIED PROBE TQ IADNA 07066 PATHOLOGY PATHOLOGY NEISSERIA 9 & & CYTOLOGY CYTOLOGY GONORRHOE LAB LAB AE AMPLIFIED PROBE TQ RADIOLOGI 58430 [facility] [place] MELISSA, C EXAM 9 RADIOLOGY FELIPA G CHEST 2 VIEWS FRONTAL&L ATERAL RADEX 31924 [facility] [place] MELISSA, SPINE 8 RADIOLOGY FELIPA G CERVICAL [address] [place] [address] [facility] CERVICAL 8 N N SPINE W/O [facility] MATERIAL RADEX 01756 [facility] SPINE 8 N N CERVICAL [facility] 2 OR 3 [facility] VIEWS COMPREHEN 10797 [facility] SIVE 8 N N METABOLIC [facility] URNLS DIP 67313 [facility] 8 N N STICK/TAB [facility] REAGENT AUTO MICROSCOP Y URINALYSI 40419 [facility] S 8 N N MICROSCOP [facility] IC ONLY [facility] GONADOTRO 70424 [facility] PIN 8 N N CHORIONIC [facility] QUALITATI VE BLOOD 12491 [facility] COUNT 8 N N COMPLETE [facility] AUTO&AUTO [facility] DIFRNTL WBC COLLECTIO 95976 [facility] N VENOUS 8 N N BLOOD [facility] U[facility] AMB[facility] A0429 [facility] SERVICE 8 AMBULANCE AMBULANCE BLS SERVICE SERVICE EMERGENCY TRANSPORT GROUND A0425 [facility] MILEAGE 8 AMBULANCE AMBULANCE PER SERVICE SERVICE STATUTE MILE RADIOLOGI 72958 MARIBELL TORRES C 8 MEDICAL NNEKA EXAMINATI IMAGING ON PELVIS ASSOCIATE 1/2 S VIEWS RADEX 70727 [place] BRIAN, SACRUM & 8 MEDICAL NNEKA COCCYX IMAGING MINIMUM 2 ASSOCIATE VIEWS S RADEX 91935 MARIBELL BRIAN, SPINE 8 MEDICAL NNEKA LUMBOSACR IMAGING AL ASSOCIATE MINIMUM 4 S VIEWS Encounters Encounter Start End Date Code Location Performer Type Date PERIODIC 92093 [facility] E MED EST HLTH DEPT HLTH DEPT PATIENT SCO SCO 40-64YRS EMERGENCY 26615 PERCY RENDON 7 7 [facility] T VISIT HIGH/URGE NT SEVERITY EMERGENCY 99787 [facility] 7 7 [facility] T VISIT LOW/MODER SEVERITY HOSPITAL J[facility] JOSE - 7 7 [facility] - 6 6 [facility]ERGENCY 67907 [facility] 6 6 N [facility] HOSPITA MODERATE SEVERITY EMERGENCY 10412 [facility] 6 6 [facility] EMERGENC[facility] T VISIT PHYS HIGH/URGE NT SEVERITY EMERGENCY 52538 [facility] 6 6 [facility] [place] T VIS[facility] LIMITED/M INOR [facility] 6 6 [facility] T OFFICE 12796 SWAPNIL TONG [facility] 6 6 PHYSICIAN T NEW 30 PRACTICE MINUTES L EMERGENCY 64434 PERCY ALBERTO 5 5 [facility] [place] [facility] T VISIT MODERATE SEVERITY OFFICE 03384 [facility] 4 4 MEDICAL ALL T NEW 45 SERV MINUTES [facility] UNIVERSIT - 4 4 Y [facility] T EMERGENCY 55264 RUTH SCHMIDT JR 4 4 MEDICAL [facility]II[facility] SERV T VISIT FOUNDATIO HIGH/URGE NT SEVERITY EMERGENCY 66743 RUTH MAS DEPT 4 4 MEDICAL [place] VISIT SERV HIGH FOUNDATIO SEVERITY& THREAT FUNCJ EMERGENCY 64621 MILLIE PINTO BOGDAN 4 4 DEPARTMEN T VISIT MODERATE SEVERITY Emergency PRISCA Webb (ER) 3 13:31 3 15:20 [facility] Ez E. Emergency PRISCA Webb (ER) 3 12:30 3 14:56 [facility] Ez E. EMERGENCY 05065 PRIYANKA WEBB DEPT 3 3 EMERGENCY III NATALIIA VISIT SERVICES HIGH SEVERITY& THREAT FUNJ Emergency PRISCA Rendon MD (ER) 3 22:59 3 23:20 [facility] Emergency PRISCA Rendon MD (ER) 3 00:30 3 02:53 [facility] EMERGENCY 44958 PRIYANKA RENDON 3 3 EMERGENCY [facility] DEPARTMEN SERVICES T VISIT HIGH/URGE NT SEVERITY Emergency PRISCA ALBERTS MD (ER) 3 11:56 3 13:47 [facility] EMERGENCY 44603 JUAN JOSE 3 3 [facility] DEPARTMEN INC T VISIT LOW/MODER SEVERITY EMERGENCY 24805 PRIYANKA ALBERTS 3 3 EMERGENCY [facility] DEPARTMEN SERVICES T VISIT MODERATE SEVERITY HOSPITAL [facility] - 3 3 [facility] OUTPATIEN INC T HOSPITAL [facility]UAN [facility]SE - 3 3 [facility] OUTPATIEN INC T EMERGENCY 66856 [facility] JOSE 3 3 [facility] DEPARTMEN INC T VISIT MODERATE SEVERITY EMERGENCY 56994 PRIYANKA SEVILLA DEPT 3 3 EMERGENCY NATALIIA VISIT SERVICES HIGH SEVERITY& THREAT FUNCJ EMERGENCY 43346 PRIYANKA HAMMONDS 2 2 EMERGENCY DEPARTMEN SERVICES T VISIT HIGH/URGE NT SEVERITY HOSPITAL [facility] - 2 2 [facility] OUTPATIEN INC T EMERGENCY 21152 [facility]SE 2 2 [facility] DEPARTMEN INC T VISIT LOW/MODER SEVERITY EMERGENCY 79089 PRIYANKA RENDON 2 2 EMERGENCY [place] DEPARTMEN SERVICES T VISIT HIGH/URGE NT SEVERITY EMERGENCY 98917 [facility]SE 2 2 [facility] DEPARTMEN INC T VISIT LOW/MODER SEVERITY HOSPITAL [facility] - 2 2 [facility] OUTPATIEN INC T EMERGENCY 28039 PRIYANKA HAMMONDS 2 2 EMERGENCY DEPARTMEN SERVICES T VISIT HIGH/URGE NT SEVERITY HOSPITAL [facility] - 2 2 [facility] OUTPATIEN INC T EMERGENCY 71316 J[facility] JOSE 2 2 [facility] DEPARTMEN INC T VISIT HIGH/URGE NT SEVERITY HOSPITAL [facility]SE - 1 1 [facility] OUTPATIEN INC T EMERGENCY 56143 J[facility] JOSE 1 1 [facility] DEPARTMEN INC T VISIT LOW/MODER SEVERITY OFFICE 85248 [facility] 1 MARYANN MARYANN T NEW 30 MINUTES HOSPITAL J[facility]SE - 1 1 [facility] OUTPATIEN INC T EMERGENCY 03917 [facility] JOSE 1 1 [facility] V[facility] LIMITED/M INOR PROB EMERGENCY 30081 PRIYANKA JOHNSON 1 1 EMERGENCY DEPARTMEN SERVICES T VISIT MODERATE SEVERITY [facility]OSP[facility] 1 [facility] OUTPATIEN INC T EMERGENCY 55495 [facility] 1 1 [facility] DEPARTMEN INC T VISIT MODERATE SEVERITY EMERGENCY 76236 PRIYANKA RENDON DEPT 1 1 EMERGENCY [facility] VISIT SERVICES HIGH SEVERITY& THREAT FUNCJ EMERGENCY 18060 [facility] 1 1 [facility] DEPARTMEN INC T VISIT LOW/MODER SEVERITY EMERGENCY 37296 PRIYANKA RENDON DEPT 1 1 EMERGENCY [facility] VISIT SERVICES HIGH SEVERITY& THREAT FUN [facility]OSPITAL [facility] - 1 1 [facility] OUTPATIEN INC T EMERGENCY 94800 PRIYANKA MUSA 1 1 EMERGENCY DEPARTMEN SERVICES T VISIT HIGH/URGE NT SEVERITY EMERGENCY 11325 PRIYANKA GUNN DEPT 1 1 EMERGENCY SAEED VISIT SERVICES HIGH SEVERITY& THREAT FUN OFFICE 11512 JEFFREY ELIZABETH JEFFREY ELIZABETH OUTPATIEN 1 1 T VISIT 25 MINUTES EMERGENCY 44132 PRIYANKA HURD 1 1 EMERGENCY NARAYAN DEPARTMEN SERVICES T VISIT HIGH/URGE NT SEVERITY PERIODIC 78105 JEFFREY ELIZABETH JEFFREY ELIZABETH PREVENTIV 1 1 E MED EST PATIENT 18-39 YRS [facility] - 0 0 [facility] OUTPATIEN INC T EMERGENCY 57494 PRIYANKA RENDON, DEPT 0 0 EMERGENCY JYOTI S VISIT SERVICES HIGH SEVERITY& ASSOCIATE THREAT S FUN EMERGENCY 81398 [facility] 0 0 [facility] DEPARTMEN INC T VISIT MODERATE SEVERITY EMERGENCY 81367 [facility] 0 0 [facility] DEPARTMEN INC T VISIT MODERATE SEVERITY [facility]OSPITAL [facility] - 0 0 [facility] OUTPATIEN INC T EMERGENCY 72147 PRIYANKA RENDON, DEPT 0 0 EMERGENCY JYOTI S VISIT SERVICES HIGH SEVERITY& ASSOCIATE THREAT S FUN EMERGENCY 31214 PRIYANKA SPRING, DEPT 0 0 EMERGENCY ARCELIA VISIT SERVICES O HIGH SEVERITY& ASSOCIATE THREAT S FUN EMERGENCY 19306 [facility] 0 0 [facility] DEPARTMEN INC T VISIT LOW/MODER SEVERITY [facility]OSPITAL [facility] - 0 0 [facility] OUTPATIEN INC T EMERGENCY 46342 [facility] MODERATE SEVERITY EMERGENCY 71290 PRIYANKA BARTON 9 9 EMERGENCY , JAMES DEPARTMEN SERVICES T VISIT HIGH/URGE ASSOCIATE NT S SEVERITY HOSPITAL [facility] 41970 JEFFREY MURPHY, OUTPATIEN 9 9 STANLEY Andrade T VISIT 15 MINUTES OFFICE 51791 Dandy [facility] 9 9 JOSE Andrade T VISIT PSC 15 MINUTES EMERGENCY 07321 [facility] 9 9 [facility] DEPARTMEN INC T VISIT LOW/MODER SEVERITY EMERGENCY 76984 PRIYANKA SPRING, 9 9 EMERGENCY ARCELIA DEPARTMEN SERVICES O T VISIT MODERATE ASSOCIATE SEVERITY S HOSPITAL [facility] - 9 9 [facility] OUTPATIEN INC T EMERGENCY 76573 PRIYANKA CHIANG, 9 9 EMERGENCY [facility] DEPARTMEN SERVICES T VISIT MODERATE ASSOCIATE SEVERITY S INITIAL 71906 JEFFREY MURPHY, PREVENTIV 9 9 STANLEY Andrade E MEDICINE NEW PT AGE 18-39YRS EMERGENCY 69208 [facility] 9 9 N [facility] T VISIT HOSPITAL MODERATE SEVERITY HOSPITAL [facility] 9 [facility] 37299 [facility], 9 9 VINEET ELVIS Gregg DEPARTMEN EMERGENCY T VISIT PHYS INC HIGH/URGE NT SEVERITY EMERGENCY 23303 [facility] RACE, 8 8 VINEET MICHELLE Collazo DEPARTMEN EMERGENCY T VISIT PHYS INC HIGH/URGE NT SEVERITY EMERGENCY 92215 [facility] AHMED, 8 8 [facility] VIS[facility] PHYS INC MODERATE SEVERITY HOSPITAL [facility] - 8 8 N OUTPATIEN [facility] EMERGENCY 92529 [facility] CELLAROSI 8 8 VINEET [facility] EMERGENCY CELESTINO T VISIT PHYS INC M HIGH/URGE NT SEVERITY EMERGENCY 52218 [facility] 8 8 N [facility] T VISIT HOSPITAL MODERATE SEVERITY OFFICE 59151 Dandy BENNETT 8 8 JOSE Andrade T VISIT PSC 15 MINUTES EMERGENCY 40763 [facility], 8 8 VINEET [facility] EMERGENCY A T VISIT PHYS INC HIGH/URGE NT SEVERITY HOSPITAL [facility] - 8 8 N [facility] EM[facility]ENC[facility] 81795 [facility] 8 8 N [facility] T VISIT HOSPITAL LOW/MODER SEVERITY OFFICE 59849 Dandy BENNETT 8 8 JOSE Andrade T VISIT PSC 15 MINUTES HOSPITAL [facility] - 8 8 [facility] OUTPATIEN INC T EMERGENCY 28911 [facility] 8 8 [facility] [facility] T VISIT MODERATE SEVERITY OFFICE [id number] Dandy BENNETT 8 8 JOSE Adnrade T VISIT PSC 25 MINUTES
--- OUTSIDE RECORDS SUMMARY | 2017-06-07 05:16 | External Medical Summary Rpt | CCD ---
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 Code Location Performer Type Date PERIODIC 57234 [facility] E MED EST HLTH DEPT HLTH DEPT PATIENT SCO SCO 40-64YRS EMERGENCY 71919 PERCY RENDON 7 7 [facility] T VISIT HIGH/URGE NT SEVERITY EMERGENCY 10001 JUAN JOSE 7 7 [facility] T VISIT LOW/MODER SEVERITY HOSPITAL JUAN JOSE - 7 7 [facility]ER[facility] 68170 [facility] 6 6 N [facility] MODERATE SEVERITY EMERGENCY 39923 [facility] 6 6 [facility] EMERGENCY T VISIT PHYS HIGH/URGE NT SEVERITY EMERGENCY 53864 [facility] 6 6 [facility] T [facility]ISIT LIMITED/M INOR [facility] 6 6 [facility] T OFFICE [address] [facility] 6 6 PHYSICIAN T NEW 30 PRACTICE MINUTES L EMERGENCY 94777 PERCY ALBERTO 5 5 [facility] T VISIT MODERATE SEVERITY OFFICE 39274 [facility] 4 4 MEDICAL ALL T NEW 45 SERV MINUTES [facility] - 4 4 Y [facility] T EMERGENCY 52595 RUTH SCHMIDT JR 4 4 MEDICAL NATALIIA [facility] SERV T VISIT FOUNDATIO HIGH/URGE NT SEVERITY EMERGENCY 22612 RUTH MAS DEPT 4 4 MEDICAL [place] VISIT SERV HIGH FOUNDATIO SEVERITY& THREAT FUNCJ EMERGENCY 11113 MILLIE PINTO BOGDAN 4 4 DEPARTMEN T VISIT MODERATE SEVERITY Emergency PRISCA Webb (ER) 3 13:31 3 15:20 [facility] Ez E. Emergency PRISCA Webb (ER) 3 12:30 3 14:56 [facility] Ez E. EMERGENCY 36436 PRIYANKA WEBB DEPT 3 3 EMERGENCY III NATALIIA VISIT SERVICES HIGH SEVERITY& THREAT FUNJ Emergency PRISCA Rendon MD (ER) 3 22:59 3 23:20 [facility] Emergency PRISCA Rendon MD (ER) 3 00:30 3 02:53 [facility] EMERGENCY 37801 PRIYANKA RENDON 3 3 EMERGENCY [facility] DEPARTMEN SERVICES T VISIT HIGH/URGE NT SEVERITY Emergency PRISCA ALBERTS MD (ER) 3 11:56 3 13:47 [facility] EMERGENCY 91756 JUAN JOSE 3 3 MEM [facility] DEPARTMEN INC T VISIT LOW/MODER SEVERITY EMERGENCY 82221 PRIYANKA ALBERTS 3 3 EMERGENCY [facility] DEPARTMEN SERVICES T VISIT MODERATE SEVERITY HOSPITAL JUAN JOSE - 3 3 [facility] OUTPATIEN INC T HOSPITAL JUAN JOSE - 3 3 [facility] OUTPATIEN INC T EMERGENCY 37152 JUAN JOSE 3 3 MEM [facility] DEPARTMEN INC T VISIT MODERATE SEVERITY EMERGENCY 93369 PRIYANKA SEVILLA DEPT 3 3 EMERGENCY NATALIIA VISIT SERVICES HIGH SEVERITY& THREAT FUNCJ EMERGENCY 75982 PRIYANKA HAMMONDS 2 2 EMERGENCY DEPARTMEN SERVICES T VISIT HIGH/URGE NT SEVERITY HOSPITAL J[facility] - 2 2 [facility] OUTPATIEN INC T EMERGENCY 25236 JUAN JOSE 2 2 [facility] DEPARTMEN INC T VISIT LOW/MODER SEVERITY EMERGENCY 43459 PRIYANKA RENDON 2 2 EMERGENCY ARIANNA DEPARTMEN SERVICES T VISIT HIGH/URGE NT SEVERITY EMERGENCY 78903 JUAN JOSE 2 2 [facility] DEPARTMEN INC T VISIT LOW/MODER SEVERITY HOSPITAL J[facility] JOSE - 2 2 [facility] OUTPATIEN INC T EMERGENCY 75559 PRIYANKA HAMMONDS 2 2 EMERGENCY DEPARTMEN SERVICES T VISIT HIGH/URGE NT SEVERITY HOSPITAL JU[facility] JOSE - 2 2 [facility] OUTPATIEN INC T EMERGENCY 50159 JUAN JOSE 2 2 [facility] DEPARTMEN INC T VISIT HIGH/URGE NT SEVERITY HOSPITAL JUAN JOSE - 1 1 [facility] OUTPATIEN INC T EMERGENCY 98496 JUAN JOSE 1 1 [facility] HOSP DEPARTMEN INC T VISIT LOW/MODER SEVERITY OFFICE 57240 [facility] 1 MARYANN MARYANN T NEW 30 MINUTES HOSPITAL JUAN JOSE - 1 1 [facility] H[facility] OUTPATIEN INC T EMERGENCY 80974 JUAN JOSE 1 1 [facility] T VISIT LIMITED/M INOR PROB EMERGENCY 51851 PRIYANKA JOHNSON 1 1 EMERGENCY DEPARTMEN SERVICES T VISIT MODERATE SEVERITY HOSPITAL [facility] - 1 1 [facility] OUTPATIEN INC T EMERGENCY 00561 JUAN JOSE 1 1 [facility] DEPARTMEN INC T VISIT MODERATE SEVERITY EMERGENCY 91092 PRIYANKA RENDON DEPT 1 1 EMERGENCY [facility] VISIT SERVICES HIGH SEVERITY& THREAT FUNCJ EMERGENCY 15331 JUAN JOSE 1 1 [facility] DEPARTMEN INC T VISIT LOW/MODER SEVERITY EMERGENCY 82782 PRIYANKA RENDON DEPT 1 1 EMERGENCY ARIANNA VISIT SERVICES HIGH SEVERITY& THREAT FUN HOSPITAL JUAN JOSE - 1 1 [facility] OUTPATIEN INC T EMERGENCY 68967 PRIYANKA MUSA 1 1 EMERGENCY DEPARTMEN SERVICES T VISIT HIGH/URGE NT SEVERITY EMERGENCY 35785 PRIYANKA GUNN DEPT 1 1 EMERGENCY SAEED VISIT SERVICES HIGH SEVERITY& THREAT FUN OFFICE 28067 JEFFREY ELIZABETH JEFFREY ELIZABETH OUTPATIEN 1 1 T VISIT 25 MINUTES EMERGENCY 36242 PRIYANKA HURD 1 1 EMERGENCY NARAYAN DEPARTMEN SERVICES T VISIT HIGH/URGE NT SEVERITY PERIODIC 78929 JEFFREY ELIZABETH JEFFREY ELIZABETH PREVENTIV 1 1 E MED EST PATIENT 18-39 YRS HOSPITAL [facility] - 0 0 [facility] OUTPATIEN INC T EMERGENCY 00382 PRIYANKA RENDON, DEPT 0 0 EMERGENCY JYOTI S VISIT SERVICES HIGH SEVERITY& ASSOCIATE THREAT S FUN EMERGENCY 57200 JUAN JOSE 0 0 MEM [facility] DEPARTMEN INC T VISIT MODERATE SEVERITY EMERGENCY 27191 JUAN JOSE 0 0 MEM [facility] DEPARTMEN INC T VISIT MODERATE SEVERITY HOSPITAL JU[facility] JOSE - 0 0 [facility] OUTPATIEN INC T EMERGENCY 61879 PRIYANKA RENDON, DEPT 0 0 EMERGENCY JYOTI S VISIT SERVICES HIGH SEVERITY& ASSOCIATE THREAT S FUN EMERGENCY 27152 PRIYANKA SPRING, DEPT 0 0 EMERGENCY ARCELIA VISIT SERVICES O HIGH SEVERITY& ASSOCIATE THREAT S FUN EMERGENCY 05897 JUAN JOSE 0 0 [facility] DEPARTMEN INC T VISIT LOW/MODER SEVERITY HOSPITAL JUAN JOSE - 0 0 [facility] OUTPATIEN INC T EMERGENCY 33866 [facility] 9 [facility] MODERATE SEVERITY EMERGENCY 44857 PRIYANKA BARTON 9 9 EMERGENCY , JAMES DEPARTMEN SERVICES T VISIT HIGH/URGE ASSOCIATE NT S SEVERITY [facility]OSPITAL [facility] - 9 9 N [facility] 94852 JEFFREY MURPHY, OUTPATIEN 9 9 STANLEY Andrade T VISIT 15 MINUTES OFFICE 27913 [facility] JOSE Andrade T VISIT PSC 15 MINUTES EMERGENCY 12518 JUAN JOSE 9 9 MEM [facility] DEPARTMEN INC T VISIT LOW/MODER SEVERITY EMERGENCY 97991 PRIYANKA SPRING, 9 9 EMERGENCY ARCELIA DEPARTMEN SERVICES O T VISIT MODERATE ASSOCIATE SEVERITY S HOSPITAL JUAN JOSE - 9 9 [facility] OUTPATIEN INC T EMERGENCY 85795 PRIYANKA CHIANG, 9 9 EMERGENCY [facility] DEPARTMEN SERVICES T VISIT MODERATE ASSOCIATE SEVERITY S INITIAL 76995 JEFFREY MURPHY, PREVENTIV 9 9 STANLEY Andrade E MEDICINE NEW PT AGE 18-39YRS EMERGENCY 03087 [facility] 9 9 N [facility] T VISIT HOSPITAL MODERATE SEVERITY [facility]OSPITAL [facility] - 9 9 [facility] 53094 [facility], 9 9 VINEET ELVIS Gregg DEPARTMEN EMERGENCY T VISIT PHYS INC HIGH/URGE NT SEVERITY EMERGENCY 69969 [facility] RACE, 8 8 VINEET MICHELLE Collazo DEPARTMEN EMERGENCY T VISIT PHYS INC HIGH/URGE NT SEVERITY EMERGENCY 11986 [facility] AHMED, 8 8 [facility] A T VISIT PHYS INC MODERATE SEVERITY [facility]OSPITAL [facility] - 8 8 N [facility] T HOSPITAL EMERGENCY 87467 [facility] CELLAROSI 8 8 [facility] EMERGENCY CELESTINO T VISIT PHYS INC M HIGH/URGE NT SEVERITY EMERGENCY 40376 [facility] 8 8 N [facility] T VISIT HOSPITAL MODERATE SEVERITY OFFICE 75836 Dandy BENNETT 8 8 JOSE Andrade T VISIT PSC 15 MINUTES EMERGENCY 50415 [facility], 8 8 [facility] EMERGENCY A T VISIT PHYS INC HIGH/URGE NT SEVERITY [facility]OSPITAL [facility] - 8 8 N OUTPATIEN COMMUNITY T HOSPITAL EMERGENCY 28328 [facility] 8 8 N [facility] T VISIT HOSPITAL LOW/MODER SEVERITY OFFICE 04526 Dandy BENNETT 8 8 JOSE Andrade T VISIT PSC 15 MINUTES HOSPITAL JUAN JOSE - 8 8 [facility] OUTPATIEN INC T EMERGENCY 69992 JUAN JOSE 8 8 [facility] T VISIT MODERATE SEVERITY OFFICE 78251 Dandy BENNETT 8 8 JOSE Andrade T VISIT PSC 25 MINUTES
[2017-06-07 05:21] LABS: HEMOGLOBIN 13.2 g/dL (12.2-16.2); LYMPH # 2.2 K/mm3 (0.7-4.5)
--- OUTSIDE RECORDS SUMMARY | 2017-06-07 05:22 | External Medical Summary Rpt | CCD ---
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 Name Role Phone TG HAYNES, MAS Unavailable Unavailable [place]AS AHMED, ROUSE A, Unavailable Unavailable AHMED, ROUSE A BEINEKE HANG, BEINEKE Unavailable Unavailable HANG JAMES MICHAEL, Unavailable Unavailable JAMES MICHAEL [facility] Unavailable Unavailable [facility] PHYSICIAN Unavailable Unavailable PRACTICE L, [facility] Unavailable Unavailable SERVICE, [facility] Unavailable Unavailable SERVICE, [facility] CELLAROSI - YORBA, Unavailable Unavailable CELESTINO Bustillo, CELLUZIEL - CELESTINO MORTON PHI, TOBAR PHI Unavailable Unavailable RIGO TER, RIGO TER Unavailable Unavailable NIKKIE SIERRA CLARK, Unavailable Unavailable NIKKIE [facility], Unavailable Unavailable [facility] ZELAYA LAURIE, ZELAYA LAURIE Unavailable Unavailable ZELAYA, PAUL A, Unavailable Unavailable ZELAYA, PAUL A CORNEA VIR, CORNEA Unavailable Unavailable VIR BRIAN DEANNA, Unavailable Unavailable BRIAN DEANNA BRIAN, NNEKA, Unavailable Unavailable BRIAN, NNEKA [facility] # [id number], Unavailable Unavailable [facility] # [id number] [facility] 2332, Unavailable Unavailable [facility] 2332 DAUKAS SAEED, DAUKAS Unavailable Unavailable [facility] Unavailable [facility]available [facility], [facility]available [facility]available [facility] [place] [facility] [place] [facility] [place] [facility] DENISSE MAT, DENISSE MAT Unavailable Unavailable MICK JAMES, Unavailable Unavailable FARTIO JAMES FINE ALYCIA, FINE ALYCIA Unavailable Unavailable VANNESSA HURD Unavailable Unavailable HURD NARAYAN HURD Unavailable Unavailable NARAYAN HECTOR YOUNG Unavailable Unavailable HECTOR ARIANNA, HECTOR Unavailable Unavailable ARIANNA JYOTI YOUNG S, Unavailable Unavailable JYOTI YOUNG [facility] Unavailable Unavailable [facility], [facility] Unavailable [facility]available H[facility]ITA, [facility] C[facility]TO ELIZABETH, [facility] Unavailable Unavailable CASSI ALL, Unavailable Unavailable CASSI ALL MELISSA, FELIPA G, Unavailable Unavailable MELISSA, FELIPA G SYBIL BAR, SYBIL BAR Unavailable Unavailable [facility] Un[facility] Un[facility], [facility], [facility]available Unavailable [facility] SONIA III GARDENIA, Unavailable Unavailable SONIA [...] BOOM BREANNA, BOOM JAM Unavailable Unavailable SHIMON GARCIA E, Unavailable Unavailable SHIMON GARCIA E DOLLY DALLAS, DOLLY Unavailable Unavailable DALLAS [facility] Unavailable Unavailable SERVICES, [facility] SOHAM TRINH, Unavailable Unavailable SOHAM TRINH JOHN R, Unavailable Unavailable NIKKIE CHIANG O'FILIBERTO VINEET, O'FILIBERTO Unavailable Unavailable VINEET [facility], [facility], [facility] Unavailable Unavailable LABS, [facility] LAURIE ZELAYA MD Unavailable Unavailable CONSULTING SRV, LAURIE ZELAYA MD CONSULTING [facility] Unavailable Unavailable EMS, [facility] Unavailable Unavailable EMS, [facility], Unavailable Unavailable PLL[facility], [facility] Unavailable Unavailable LAB, [facility] MIKE DOHERTY, Unavailable Unavailable MIKE DOHERTY RACE, MICHELLE F, RACE, Unavailable Unavailable MICHELLE Collazo [facility] Unavailable Unavailable [id number] [address] [id number], [facility] [id number] # [id number] ROEL BEVERLY Unavailable Unavailable NATALIIA GUNN SAEED, GUNN Unavailable Unavailable SAEED SOKAN BAB, SOKAN BAB Unavailable Unavailable SOKAN, ARCELIA O, Unavailable Unavailable SOKAN, ARCELIA O [facility] JEFFREY ELIZABETH, JEFFREY ELIZABETH Unavailable Unavailable JEFFREY ELIZABETH, JEFFREY ELIZABETH Unavailable Unavailable STANLEY MURPHY, Unavailable Unavailable STANLEY MURPHY [facility], Unavailable Unavailable [facility] Unavailable [facility] [facility], [facility] ELVIS THURSTON, Unavailable Unavailable ELVIS THURSTON [facility] # Unavailable Unavailable [id number], [facility] # [id number] [facility] Unavailable Unavailable DEPT SCO, [facility] HLTH DEPT SCO [facility] Unavailable Unavailable DEPT [facility], [facility] WEHRMAN III NATALIIA, Unavailable Unavailable WEHRMAN III NATALIIA MILLIE MCFADDEN, MILLIE MCFADDEN Unavailable Unavailable MILLIE MCFADDEN, MILLIE MCFADDEN Unavailable Unavailable Dandy GARCIA, JOSE, Unavailable Unavailable Dandy WILLIAM, YOUNG Unavailable Unavailable JR NATALIIA PASTORA MAT, PASTORA MAT Unavailable Unavailable Purpose Continuity of Care Document - 08-16-2007 through 2016 Problems Code Diagnosis DOS Provider Status [id number] ENCOUNTER 04-26-2017 [facility] SECONDARY SET UP MAN EXAM DISTRICT GENERAL RTN HLTH DEPT W/O SCO ABNORMAL FIND Z113 ENCOUNTER 04-26-2017 [facility] SCREEN DISTRICT INFECTIONS HLTH DEPT SEXL MODE SCO TRANSMISSN Z1239 ENCOUNTER 04-26-2017 [facility] OTHER DISTRICT SCREENING [facility] DEPT MALIG SCO NEOPLASM BREAST Z3189 ENCOUNTER 04-26-2017 [facility] FOR OTHER DISTRICT PROCREATIVE [facility] DEPT MANAGEMENT SCO A5901 TRICHOMONAL 11-28-2016 [facility], VULVOVAGINI PLLC TIS I10 ESSENTIAL 11-28-2016 [facility] HYPERTENSIO INC N Z202 CONTACT 11-28-2016 [facility], EXPOSURE PLLC INFECT SEXUAL MODE TRANSMS Z720 TOBACCO USE 11-28-2016 [facility] M542 CERVICALGIA 05-08-2016 [facility] Q68081 OTHER 05-08-2016 [facility] MUSCLE N EMERGENCY SPASM PHYS [id number] STRAIN 05-08-2016 [facility] MUSCLE FASC N EMERGENCY & TENDON PHYS NECK LEVL INIT ENC Y9389 ACTIVITY 05-08-2016 [facility] OTHER N EMERGENCY SPECIFIED PHYS R404 TRANSIENT 04-04-2016 [facility]ATION [facility] EMS AWARENESS [id number] UNS ADVERS 04-04-2016 [facility] EFFECT [facility]/MEDICA [facility] EMS MENT INITIAL ENCNTR Z4801 ENCOUNTER 03-20-2016 [facility] CHANGE/TIMMY N EMERGENCY LUDY PHYS SURGICAL WOUND DRESSING Z4802 ENCOUNTER 03-20-2016 [facility] D1730 BENIGN 03-05-2016 [facility] LIPOMATOUS PHYSICIAN [...] 02-20-2016 [facility] DISORDER PHYSICIAN UNSPECIFIED PRACTICE L 13858 UNSPECIFIED 02-19-2015 [facility] SITE OF PHYSICIANS, ANKLE PLLC SPRAIN AND STRAIN 12257 OTHER 06-14-2014 [facility]BULANCE OF SERVICE [facility] 44261 UNSPECIFIED 04-05-2014 [place] [facility] [place] SERV HEPATITIS C FOUNDATION W/O HEPATIC COMA 7906 OTHER 04-05-2014 [place] ABNORMAL SERV BLOOD [facility] CHEMISTRY 23666 ABDOMINAL 03-25-2014 [facility] UNSPECIFIED SITE 64747 OTHER ACUTE 03-14-2014 [place] [facility] [place] POSTOPERATI FOUNDATIO VE PAIN 7823 EDEMA 03-14-2014 [place] [facility] F[facility] 86434 ABDOMINAL 03-14-2014 [place] [facility] [place] RIGHT SERV UPPER FOUNDAT[place] QUADRANT V1209 PERSONAL HX 03-14-2014 [place] [facility] [place]TH [place] INFECTIOUS& FOUNDATIO PARASITIC DISEASE V1279 PERSONAL 03-14-2014 [place] [facility] HISTORY OTH SERV DISEASES FOUNDATIO DIGESTIVE DISEASE 56317 CALCU 03-11-2014 [facility] W/OTH HOSPI CHOLECYST W/O MENTION OBST 66227 CALCU 03-10-2014 [place] MEDICAL GALLBLADD SERV W/O MENTION FOUNDATIO CHOLECYST/O BST 91095 CHOLECYSTIT 03-10-2014 [place] [facility] IS, SERV UNSPECIFIED FOUNDATIO 5990 URINARY 03-10-2014 [place] [facility] TRACT SERV INFECTION FOUNDATIO SITE NOT SPECIFIED 37916 VOMITING 03-10-2014 [place] [facility] 6820 CELLULITIS 02-09-2014 [facility] AND ABSCESS OF FACE 71982 OTHER 05-01-2013 [place] DISEASES OF MEDICAL SPLEEN IMAGING ASS 49405 OTHER 05-01-2013 [place] DISEASES OF MEDICAL LUNG NOT IMAGING ASS ELSEWHERE CLASSIFIED 5759 UNSPECIFIED 05-01-2013 [place] DISORDER MEDICAL OF IMAGING ASS GALLBLADDER 34505 NAUSEA WITH 05-01-2013 [facility] 4019 UNSPECIFIED 01-07-2013 [facility] ESSENTIAL EMERGENCY HYPERTENSIO SERVICES N 82476 HYPERTROPHY 01-07-2013 [place] OF TONSILS MEDICAL ALONE IMAGING ASS 7231 CERVICALGIA 01-07-2013 [facility] 9160 HIP THI 10-03-2012 [facility] ABRASION/FR INC ICION BURN W/O INF 9597 INJURY 10-03-2012 [facility] OTHER&UNSPE EMERGENCY CIFIED KNEE SERVICES LEG ANKLE&FOOT 4660 ACUTE 07-11-2012 [facility] BRONCHITIS EMERGENCY SERVICES 5259 UNSPECIFIED 10-03-2011 [facility] DISORDER EMERGENCY TEETH&SUPPO SERVICES RTING STRUCTURES 73450 OTHER 10-03-2011 [facility] SPECIFIED [facility] COMPLICATIO INC NS NEC 6149 UNSPEC 09-03-2011 [facility] INFLAM EMERGENCY DISEASE FE SERVICES PELVIC ORGANS&TISS UES 8020 NASAL 05-03-2011 [facility], [facility] CLOSED INC FRACTURE 470 DEVIATED 04-27-2011 SQUIRES MARYANN NASAL SEPTUM 05110 OTHER 04-27-2011 [facility] DISEASES OF EMERGENCY NASAL SERVICES CAVITY AND SINUSES 920 CONTUSION 04-25-2011 [facility] OF FACE EMERGENCY SCALP AND SERVICES NECK EXCEPT EYE 54381 HORDEOLUM 02-15-2011 [facility]NUM [facility] INC 16480 ABSCESS OF 02-15-2011 [facility] EYELID [facility]GENCY SERVICES 7840 HEADACHE 02-15-2011 [place] [facility] 4659 ACUTE URIS 11-29-2010 [facility] OF EMERGENCY UNSPECIFIED SERVICES SITE 6256 FEMALE 11-29-2010 [facility] STRESS EMERGENCY INCONTINENC SERVICES E 88659 WHEEZING 11-29-2010 [facility] 63653 HEAD 09-08-2010 [facility] [place] INJURY, RADIOLOGY UNSPECIFIED E9179 OTHER 09-08-2010 [facility] STRIKING EMERGENCY AGAINST SERVICES W/WO SUBSEQUENT FALL 6250 DYSPAREUNIA 09-04-2010 [facility] 6253 DYSMENORRHE 09-04-2010 [facility] ELIZ[facility] A 85404 ABDOMINAL 09-04-2010 [facility] PAIN RIGHT LOWER QUADRANT 50622 ABDOMINAL 09-04-2010 [facility] ELIZAB[facility] PAIN, LEFT LOWER QUADRANT 6262 EXCESSIVE 09-03-2010 [facility] OR FREQUENT EMERGENCY SERVICES MENSTRUATIO N V154 PERS HX 08-26-2010 DEPT FOR PSYCHOLOGIC PUBLIC HLTH AL TRAUMA PRS [facility] 81688 UNSPECIFIED 07-22-2010 [facility] ELIZ[facility] VAGINITIS AND VULVOVAGINI TIS V7231 ROUTINE 07-22-2010 [facility] GYNECOLOGIC AL EXAMINATION V5869 LONG-TERM 01-23-2010 LAURIE ZELAYA (CURRENT) USE OF CONSULTING OTHER SRV MEDICATIONS 5110 PLEURISY 12-08-2009 [facility] MENTION [facility]PITAL EFFUS/[place] [address] CHEST PAIN 12-08-2009 [place] UNSPECIFIED [facility] 6826 CELLULITIS 12-03-2009 [facility] AND ABSCESS [facility] OF LEG INC EXCEPT FOOT 8470 NECK SPRAIN 11-19-2009 PRI[facility] AND STRAIN EMERGENCY SERVICES ASSOCIATES 6235 LEUKORRHEA 05-27-2009 [facility] NOT EMERGENCY SPECIFIED SERVICES ASSOCIATES INFECTIVE V016 CONTACT 05-27-2009 [facility] WITH OR EMERGENCY EXPOSURE TO SERVICES VENEREAL ASSOCIATES DISEASES 87562 TRICHOMONAL 04-05-2009 MEDICAL DIAGNOSTIC [facility]IN[facility] TIS 6264 IRREGULAR 04-05-2009 [facility] MENSTRUAL DIAGNOST[facility] 41165 GENERALIZED 03-21-2009 A Raymond GARCIA ANXIETY PSC DISORDER 7242 LUMBAGO 03-21-2009 A Raymond GARCIA MD PSC 8930 OPEN WOUND 03-13-2009 [facility] TOE WITHOUT EMERGENCY MENTION SERVICES COMPLICATIO ASSOCIATES N 6228 OTHER 09-18-2008 PATHOLOGY & 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 9181 SUPERFICIAL 08-29-2008 [facility] INJURY OF N EMERGENCY CORNEA PHYS INC 9182 SUPERFICIAL 08-29-2008 [facility] INJURY OF N EMERGENCY CONJUNCTIVA PHYS INC E914 FOREIGN 08-29-2008 [facility] BODY N EMERGENCY ACCIDENTALL PHYS INC Y ENTERING EYE&ADNEXA 7862 COUGH 07-15-2008 [facility] N EMERGENCY PHYS INC 16363 OTHER CHEST 07-15-2008 [facility] PAIN N EMERGENCY PHYS INC 57404 UNSPECIFIED 03-19-2008 [facility] N EMERGENCY TEMPOROMAND PHYS INC IBULAR JOINT DISORDERS 7821 RASH AND 03-19-2008 [facility] OTHER N EMERGENCY NONSPECIFIC PHYS INC SKIN ERUPTION 70098 OTHER 09-06-2007 A Raymond GARCIA DISORDER OF PSC COCCYX 9222 CONTUSION 09-04-2007 [facility] ABDOMINAL IMAGING WALL ASSOCIATES 15183 CONTUSION 09-04-2007 [place] OF BACK MEDICAL IMAGING ASSOC[facility] 60019 OTHER 09-04-2007 [facility] INJURY OF AMBULANCE OTHER SITES SERVICE OF TRUNK E8490 PLACE OF 09-04-2007 [facility], MEDICAL HOME IMAGING ASSOCIATES E8809 ACCIDENTAL 09-04-2007 [place] FALL ON OR MEDICAL FROM OTHER IMAGING STAIRS OR ASSOCIATES STEPS Medications Na ND Rx Da Fi Fi [...] 0 23 MG 32 TA BL ET 00 10 10 0 10 3 EA [...] 20 20 RT 1 00 11 11 MN 1 PH CH AR AE MA L CY S # 10 05 91 CE 68 10 10 0 21 7 WA 71 GA Ac PH 18 -2 -2 .0 L- 41 IN ti AL 00 9- 9- 00 MA 03 EY ve EX 12 20 20 RT 2 IN 20 11 11 MN 1 PH CH 50 AR AE 0 [...] RT MA CY 00 08 08 0 8. 2 EA 23 GA Ac 59 -2 -[address] 76 IN ti 10 2- 2- 0 SI 20 EY ve 34 20 20 DE 90 11 11 MN 1 PH CH AR AE MA L CY S OF CY NT HI AN A CE 00 08 08 0 30 10 EA 23 GA Ac PH 09 -2 -[address] 76 IN ti AL 33 2- 2- 00 SI 21 EY ve EX 14 20 20 DE IN 70 11 11 MN 5 PH CH 50 AR AE 0 [...] MA T CY 00 08 08 0 14 2 [...] 33 10 2 0 MG CA P HI 00 06 06 0 10 5 CV [...] 5 PH RT AR C MA CY ME 66 01 01 0 70 5 HO 60 TR Ac TR 99 -2 -2 .0 ME 11 EN ti ON 30 5- 5- 00 TO 76 T ve ID 93 20 20 WN 9 RO AZ 57 11 11 BE OL 0 PH RT E AR C VA MA GI CY NA L 0. 75 % GL MU 45 01 01 0 22 5 HO 60 TR Ac PI 80 -2 -2 .0 ME 11 EN ti RO 20 5- 5- 00 TO 77 T ve CI 11 20 20 WN 0 RO N 22 11 11 BE 2% 2 PH RT AR C OI MA NT CY ME NT 00 06 06 8. 2 RI 83 GA Ac 40 -1 -1 00 TE 77 IN ti 60 3- 3- 0 96 EY ve 35 20 20 AI 70 10 10 D MN 5 PH CH AR AE MA L CY S 03 93 8 # 03 93 DI 00 06 06 14 7 RI 83 GA Ac CL 78 -1 -1 .0 TE 78 IN ti OF 11 3- 3- 00 01 EY ve EN 78 20 20 AI AC 90 10 10 D MN 1 PH CH SO AR AE D [...] AR ZA 11 10 10 MA RA HI 0 CY ME IN # SH E [...] OF ET CY NT HI AN A VE 00 08 10 01 60 30 [...] 01 60 30 CV 26 KN Ac HI 09 -1 -2 .0 S 75 IG [...] C MG 23 32 TA BL ET CL [...] 01 60 30 CV 26 KN Ac HI 09 -1 -2 .0 S 75 IG ti OX 30 8- 4- 00 PH 82 HT ve EN 14 20 20 AR 90 09 09 MA MILANA 50 5 CY EL 0 A MG 23 32 TA BL ET BAILEY 53 08 09 00 14 7 CV [...] 8- 7- 00 PH 79 HT ve HI 51 20 20 AR OD 30 09 09 MA MILANA OL 1 CY EL A 35 23 0 32 MG TA BL ET VE 00 08 08 [...] 00 60 30 CV 26 KN Ac HI 09 -1 -2 .0 S 75 IG ti OX 30 8- 7- 00 PH 82 HT ve EN 14 20 20 AR 90 09 09 MA MILANA 50 5 CY EL 0 A MG 23 32 TA BL ET 63 03 03 00 [...] 00 20 10 CV 18 BE Ac HI 09 -2 -0 .0 S 94 NN [...] ST 62 t ti AZ 30 6- 9 00 SI 38 Av ve EP 83 [...] ST 60 t ti OX 40 4- 9 00 SI 30 Av ve YZ 08 20 20 DE ai IN 20 08 08 la E 4 PH bl HC AR e L MA 25 CY MG OF CY TA NT BL HI ET AN A CL 00 08 08 00 60 30 EA 99 No Ac ON 09 -1 -[address] 04 t ti AZ 30 1- 8 00 SI 83 Av ve EP 83 20 20 DE ai AM 30 08 08 la 1 1 PH bl AR e MG MA CY TA BL OF ET CY NT HI AN A CL 00 07 07 00 60 30 EA 98 No Ac ON 09 1 -[address] 66 t ti AZ [...] 50 23 32 MG TA BL ET IN 00 03 04 00 14 7 CV 10 No Ac DO 37 -0 -1 .0 S 24 t ti ME 80 9- 7- 00 PH 43 Av ve TH 14 20 20 AR ai AC 30 08 08 MA la IN 1 CY bl e 25 23 32 MG CA PS UL E TR 00 03 04 00 8. 2 [...] ai ZA 11 08 08 MA la HI 0 CY bl IN e E 23 [...] BL CY ET NT HI AN A CL 00 02 03 00 30 15 CV 94 No Ac ON 09 -2 -2 .0 S 72 t ti AZ 30 0- 6- 00 PH 38 Av ve EP 83 20 20 AR ai AM 20 08 08 MA la 1 CY bl 0. e 5 23 MG 32 TA BL ET Procedures Procedure DOS Code Location Performer Comment IADNA 58350 JOCELIN MONREAL CHLAMYDIA [facility] DEPT HLTH DEPT TRACHOMAT SCO SCO IS AMPLIFIED PROBE TQ CYTP 55821 [facility], PICKLES CERV/VAG 7 LLC ER JR AUTO THIN LAYER PREP MNL SCREEN IADNA 22897 JOCELIN MONREAL NEISSERIA 7 [facility] DEPT HLTH DEPT GONORRHOE SCO SCO AE AMPLIFIED PROBE TQ CULTURE 41666 [facility] BACTERIAL 7 [facility] INC INC QUANTTATI VE COLONY COUNT URINE SMR PRIM 44224 [facility] SRC WET 7 [facility]OS[facility] MOUNT INC INC NFCT AGT URNLS DIP 30409 [facility] INGRAM 7 [facility] STICK/TAB INC INC LET REAGENT AUTO MICROSCOP Y RADEX 11-11-201 96819 [facility] [place] SONIA SPINE 6 RADIOLOGY III GARDENIA CERVICAL 2 OR 3 VIEWS INJECTION J18[address] [facility] 6 N N KETOROLAC COMMUNTIY COMMUNTIY HOSPITA HOSPITA TROMETHAM INE PER 15 MG INJECTION J23[address] [facility] 6 N N ORPHENADR COMMUNTIY COMMUNTIY INE HOSPITA HOSPITA CITRATE UP TO 60 MG AMB A0427 [facility] SERVICE 6 [facility] EMERGENCY EMS EMS TRANSPORT LEVEL 1 GROUND A0425 [facility] MILEAGE [address] [facility] STATUTE EMS EMS MILE LEVEL III 20293 [facility], RIGO TER SURG 6 LLC PATHOLOGY GROSS&ARIANNA ROSCOPIC EXAM EXCISON 95382 [facility] FINE ALYCIA TUMOR 6 PHYSICIAN SOFT PRACTICE TISSUE L THIGH/KNE E SUBQ 3 CM/> ANES 64817 [place] DAUKA INTEG 6 ANESTHESI SAEED EXTREMITI A GROUP ES ANT PS TRUNK & PERINEUM NOS GROUND A0425 [facility] MILEAGE 4 AMBULANCE AMBULANCE PER SERVICE SERVICE STATUTE MILE AMB A0427 [facility] SERVICE 4 AMBULANCE AMBULANCE ALS SERVICE SERVICE EMERGENCY TRANSPORT LEVEL 1 URNLS DIP 01065 [facility] 4 Y Y STICK/TAB IRA [facility] LET RGNT AUTO W/O MICROSCOP Y URINE 36199 [facility] 4 Y Y TEST IRA [facility] [place] [address] [place] [facility] ABDOMINAL 4 MEDICAL REAL SERV TIME FOUNDATIO W/IMAGE LIMITED LAPAROSCO 89689 [place] TOBAR PHI PY SURG 4 MEDICAL CHOLECYST SERV ECTOMY FOUNDATIO LEVEL III 59684 [facility] SURG 4 Y OF VIR PATHOLOGY [place] [facility] GROSS&ARIANNA ROSCOPIC EXAM ANES 83481 [place] INTRAPERI 4 MEDICAL MEDICAL TONEAL SERV SERV UPPER FOUNDATIO FOUNDATIO ABDOMEN W/[place] [address] [place] AGUSFORMERLY [facility] ABD[facility] & 4 MEDICAL HANG PELVIS IMAGING [place] [address] [place] JAMES ABDOMINAL 4 MEDICAL MICHAEL REAL SERV TIME FOUNDATIO W/[place] [address] MARIBELL BRIAN ABDOMEN & 3 MEDICAL DEANNA PELVIS IMAGING W/CONTRAS ASS T MATERIAL 3D 83676 MAR[facility] BRIAN RENDERING 3 MEDICAL DEANNA IMAGING W/INTERP& ASS POSTPROC DIFF WORK STATION 3D 41557 MARIBELL BRIAN RENDERING 3 MEDICAL DEANNA IMAGING W/INTERP& ASS POSTPROC DIFF WORK STATION CT SOFT 59576 MARIBELL BRIAN TISSUE 3 MEDICAL DEANNA NECK IMAGING W/CONTRAS ASS T MATERIAL COMPREHEN 87579 [facility] SIVE 3 [facility]OS[facility] [place] [address] [facility] INFUSION 3 MEM HOS[facility] THER INC INC PROPH ADDL SEQUENTIA L TO 1 HR IAADI 17888 [facility] INFLUENZA 3 MEM HOS[facility] MEM HOS[facility] B VIRUS INC INC IAADI 75872 [facility] IN[facility] INFFLUENZ 3 [facility] [place] [address] [facility] ABDOMEN & 3 MEM HOSP MEM HOSP PELVIS INC INC W/O CONTRAST MATERIAL 3D 03713 [facility] INGRAM RENDERING 3 MEM HOSP MEM HOS[facility] INC INC W/INTERP& POSTPROC DIFF WORK STATION URNLS DIP 29821 [facility] INGRAM 3 [facility]OSP STICK/TAB INC INC LET REAGENT AUTO MICROSCOP Y BLOOD 14018 [facility] COUNT 3 MEM [facility] MEM HOS[facility] COMPLETE INC INC AUTO&AUTO DIFRNTL WBC RADIOLOGI 70021 [facility] C EXAM 3 MEM HOS[facility] MEM HOS[facility] CHEST 2 INC INC VIEWS FRONTAL&L ATERAL PRESSURIZ 50604 [facility] IN[facility] ED/NONPRE 3 MEM HOS[facility] MEM HOSP SSURIZED [place] [address] [facility] INFUSION 3 MEM HOS[facility]OS[facility] THERAPY/P INC INC ROPHYLAXI S /DX 1ST TO 1 HR URINE 29958 [facility] INGRAM 3 [facility]OS[facility] TEST INC INC VISUAL COLOR CMPRSN METHS PRESSURIZ 71570 [facility] IN[facility] ED/NONPRE 2 MEM HOSP MEM HOSP SSURIZED INC INC INHALATIO N TREATMENT RADIOLOGI 78338 [facility] INGRAM Raymond EXAM 2 MEM HOSP MEM HOSP CHEST 2 INC INC VIEWS FRONTAL&L ATERAL IAADI 31719 [facility]GRAM INFFLUENZ 2 MEM HOSP MEM HOSP A A VIRUS INC INC IAADI 52910 [facility] INGRAM INFLUENZA 2 MEM [facility]OS[facility] [place] [address] [facility] INGRAM STREPTOCO 2 MEM HOSP MEM HOS[facility] CCUS INC INC GROUP A SUSCEPTIB 55946 [facility] LTY STDY 2 MEM HOSP MEM HOS[facility] ANTIMICRB INC INC IAL MICRO/AGA R DILUTJ URNLS DIP 88508 [facility] INGRAM 2 [facility] HOSP STICK/TAB INC INC LET REAGENT AUTO MICROSCOP Y URINE 60384 [facility] INGRAM 2 [facility] TEST INC INC VISUAL COLOR CMPRSN METHS CULTURE 85235 [facility] BCT 2 MEM H[facility] MEM HOS[facility] ISOL&PRSM INC INC PTV ID ISOLATE EA URINE CULTURE 43113 [facility] BACTERIAL 2 [facility]OS[facility] INC INC QUANTTATI VE COLONY COUNT URINE SMR PRIM 96397 [facility] SRC WET 2 [facility] INC INC NFCT AGT 3D 84599 [facility] INGRAM RENDERING 1 MEM HOSP [facility] INC INC W/INTERP& [place] [address] [facility] INGRAM MAXILLOFA 1 MEM HOSP MEM HOS[facility] CIAL W/O INC INC CONTRAST MATERIAL CLOSED 05450 PRI[facility] YOUNG TREATMENT 1 EMERGENCY ARIANNA NASAL SERVICES FRACTURE W/[place] [address] MARIBELL DOOLEYUTCHER MAXILLOFA 1 MEDICAL DEANNA CIAL W/O IMAGING CONTRAST ASS MATERIAL 3D 79823 MARIBELL BRIAN RENDERING 1 MEDICAL DEANNA IMAGING W/INTERP& ASS POSTPROC DIFF WORK STATION RADIOLOGI 91258 [facility] MUSA C EXAM 1 RADIOLOGY CHEST 2 VIEWS FRONTAL&[place] [address] [facility] COON HEAD/BRAI 1 RADIOLOGY N W/O CONTRAST MATERIAL IADNA 68890 PATHOLOGY PATHOLOGY CHLAMYDIA 1 & & CYTOLOGY CYTOLOGY TRACHOMAT LAB LAB IS AMPLIFIED PROBE TQ SMR PRIM 59949 JEFFREY ELIZABETH JEFFREY ELIZABETH SRC WET 1 MOUNT NFCT AGT IADNA 08547 PATHOLOGY PATHOLOGY NEISSERIA 1 & & CYTOLOGY CYTOLOGY GONORRHOE LAB LAB AE AMPLIFIED PROBE TQ CYTP C/V 45246 PATHOLOGY PATHOLOGY AUTO THIN 1 & & LYR CYTOLOGY CYTOLOGY PREPJ SCR LAB LAB MNL RESCR PHYS ECG 50655 LAURIE ZELAYA ZELAYA LAURIE ROUTINE 0 MD ECG CONSULTIN W/LEAST G SRV 12 LDS I&R ONLY RHYTHM 83544 [facility] INGRAM ECG 1-3 0 [facility] LEADS INC INC TRACING ONLY W/O I&R BLOOD 22341 [facility] INGRAM COUNT 0 [facility] COMPLETE INC INC AUTO&[place] [address] [facility] INGRAM TROPONIN 0 [facility] QUANTITAT INC INC NOE RADIOLOGI 49149 [place], C 0 MEDICAL SOHAM P EXAMINATI IMAGING ON CHEST ASSOCIATE SINGLE S VIEW FRONTAL BASIC 40206 [facility]AN [facility] INGRAM METABOLIC 0 [facility] PANEL INC INC CALCIUM TOTAL ECG 27131 J[facility] INGRAM ROUTINE 0 [facility] ECG INC INC W/LEAST 12 LDS TRCG ONLY W/O I&R ECG 32106 JUAN JOSE RADHA, ROUTINE [facility] W/LEAST PROF SERV 12 LDS I&R ONLY CREATINE 80385 JUAN JOSE INGRAM KINASE MB 0 [facility] FRACTION INC INC ONLY CREATINE 51641 [facility] INGRAM KINASE 0 [facility] TOTAL INC INC FIBRIN 53703 [facility] JOSE INGRAM DGRADJ 0 [facility] PRODUCTS INC INC D-DIMER QUAL/SEMI HONG CUL BACT 33629 [facility] INGRAM XCPT 0 [facility] URINE INC INC BLOOD/STO OL AEROBIC ISOL CUL BACT 86147 [facility] INGRAM AEROBIC 0 [facility] ADDL INC INC METHS DEFINITIV E EA ISOL SUSCEPTIB 84114 J[facility] JOSE INGRAM LTY STDY 0 [facility] ANTIMICRB INC INC IAL MICRO/AGA R DILUTJ OTH 8604 [facility] INGRAM INCISION 0 [facility] W/DRAINAG INC INC E SKIN&SUBC UTANEOUS TISSUE 3D 13135 MARIBELL BRIAN, RENDERING 0 MEDICAL NNEKA W/INTERP IMAGING & [place] [address] MARIBELL BRIAN, CERVICAL 0 MEDICAL NNEKA SPINE W/[place] [address] MARIBELL BRIAN, HEAD/BRAI 0 MEDICAL NNEKA N W/O IMAGING CONTRAST ASSOCIATE MATERIAL S 3D [address] [facility] B[place]AN, RENDERING 0 MEDICAL NNEKA IMAGING W/INTERP& ASSOCIATE POSTPROC S DIFF WORK STATION ECG [id number] LAURIE ZELAYA ZELAYA, ROUTINE 0 MD PAUL Dorman ECG CONSULTIN W/LEAST G SRV PSC 12 LDS I&R ONLY INJECTION [id number] [facility] 9 N N CEFTRIAXO [facility] PER 250 MG URNLS DIP [address] [facility] 9 N N STICK/TAB [facility] REAGENT AUTO MICROSCOP Y TISS PERRY [address] [facility] SLIDE 9 N N SAMPS [facility] SKN/HR/NL HOSPITAL HOSPITAL S FNGI/ECTO PARASIT IADNA [address] [facility] CHLAMYDIA 9 N N [facility] PNEUMONIA [facility] E DIRECT PROBE TQ SMR PRIM [address] [facility] SRC WET 9 N N [facility] NFCT AGT [facility] URINE [address] [facility] 9 N N TEST [facility] VISUAL [facility] COLOR CMPRSN METHS IADNA [address] [facility] NEISSERIA 9 N N [facility] GONORRHOE [facility] AE DIRECT PROBE TQ IADNA 32945 [facility] 9 [facility]AGNOSTI [facility]AG[facility] GONORRHOE AE AMPLIFIED PROBE TQ IADNA NOS 12202 [facility] 9 DIAGNOSTI DIAGNOSTI AMPLIFIED [facility] PROBE TQ EACH ORGANISM SMR PRIM 11287 JEFFREY, JEFFREY, SRC WET 9 STANLEY C STANLEY C [place] NFCT AGT IADNA 89598 [facility] CHLAMYDIA 9 DIAGNOSTI DIAGNOSTI [facility] TRACHOMAT IS AMPLIFIED PROBE TQ INCISION 55073 PRIYANKA MARIIA, & 9 EMERGENCY NIKKIE R DRAINAGE SERVICES ABSCESS SIMPLE/SI ASSOCIATE NGLE S IADNA 36754 PATHOLOGY PATHOLOGY CHLAMYDIA 9 & & CYTOLOGY CYTOLOGY TRACHOMAT LAB LAB IS AMPLIFIED PROBE TQ IADNA 85651 PATHOLOGY PATHOLOGY NEISSERIA 9 & & CYTOLOGY CYTOLOGY GONORRHOE LAB LAB AE AMPLIFIED PROBE TQ CYTP C/V 84454 PATHOLOGY PATHOLOGY AUTO THIN 9 & & LYR CYTOLOGY CYTOLOGY PREPJ SCR LAB LAB MNL RESCR PHYS RADIOLOGI 99984 [facility] [place] MELIS[place], C EXAM 9 RADIOLOGY FELIPA G CHEST 2 VIEWS FRONTAL&L ATERAL RADEX 54983 [facility] [place] M[place], SPINE 8 RADIOLOGY FELIPA G CERVICAL 4 OR 5 VIEWS RADEX [address] [facility] SPINE 8 N N CERVICAL [facility] 2 OR [address] [place] [address] [facility] CERVICAL 8 N N SPINE W/O [facility] MATERIAL COMPREHEN [address] [facility] SIVE 8 N N METABOLIC [facility] URNLS DIP [address] [facility] 8 N N STICK/TAB [facility] REAGENT AUTO MICROSCOP Y GONADOTRO [address] [facility] PIN 8 N N CHORIONIC [facility] QUALITATI VE BLOOD [address] [facility] COUNT 8 N N COMPLETE [facility] AUTO&AUTO [facility] DIFRNTL WBC URINALYSI [address] [facility] S 8 N N MICROSCOP [facility] IC ONLY [facility] COLLECTIO [address] [facility] N VENOUS 8 N N BLOOD [facility] URE RADEX 78479 [place] B[place], SPINE 8 MEDICAL NNEKA LUMBOSACR IMAGING AL ASSOCIATE MINIMUM 4 S VIEWS RADEX 73252 MARIBELL DOOLEYUTCHER, SACRUM & 8 MEDICAL NNEKA COCCYX IMAGING MINIMUM 2 ASSOCIATE VIEWS S GROUND A0425 [facility] MILEAGE 8 AMBULANCE AMBULANCE PER SERVICE SERVICE STATUTE MILE AMBULANCE A0429 [facility] SERVICE 8 AMBULANCE AMBULANCE BLS SERVICE SERVICE EMERGENCY TRANSPORT RADIOLOGI 41757 MARIBELL TORRES C 8 MEDICAL NNEKA EXAMINATI IMAGING ON PELVIS ASSOCIATE 1/2 S VIEWS Encounters Encounter Start End Date Code Location Performer Type Date PERIODIC 47053 [facility] EST HLTH DEPT HLTH DEPT PATIENT SCO SCO 40-64YRS EMERGENCY 60996 JUAN JOSE 7 7 [facility] INC T VISIT LOW/MODER SEVERITY HOSPITAL JUAN JOSE - 7 7 [facility] OUTPATIEN INC T EMERGENCY 60743 PERCY YOUNG 7 7 PHYSICIAN ANNE DE LEONC T VISIT HIGH/URGE NT SEVERITY EMERGENCY 25624 [facility] 6 6 [facility] EMERGENCY T VISIT PHYS HIGH/URGE NT SEVERITY HOSPITAL [facility] - 6 [facility] 79738 [facility] 6 6 N [facility] V[facility] MODERATE SEVERITY [facility] T [facility]ENCY 23239 [facility] 6 [facility] T VISIT LIMITED/M INOR PROB OFFICE 59081 [facility] PHYSICIAN T NEW 30 PRACTICE MINUTES L EMERGENCY 17300 PERCY ALBERTO 5 5 PHYSICIAN ANNE QUINTANAC T VISIT MODERATE SEVERITY OFFICE 26982 [facility] OUTPATIEN 4 4 MEDICAL ALL T NEW 45 SERV MINUTES FOUNDATIO N HOSPITAL [facility] - [facility] 4 [facility] 73506 RUTH BRAYAN DOHERTY 4 4 MEDICAL NATALIIA DEPARTMEN SERV T VISIT FOUNDATIO HIGH/URGE NT SEVERITY EMERGENCY 99323 RUTH MAS DEPT 4 4 MEDICAL [place] VISIT SERV HIGH FOUNDATIO SEVERITY& THREAT FUNJ EMERGENCY 71546 MILLIE MCFADDEN MILLIE MCFADDEN 4 4 DEPARTMEN T VISIT MODERATE SEVERITY EMERGENCY 32350 PRIYANKA JIMENEZ DEPT 3 3 EMERGENCY III NATALIIA VISIT SERVICES HIGH SEVERITY& THREAT FUNCJ EMERGENCY 35643 PRIYANKA YOUNG 3 3 EMERGENCY ARIANNA DEPARTMEN SERVICES T VISIT HIGH/URGE NT SEVERITY EMERGENCY 14306 PRIYANKA ALBERTS 3 3 EMERGENCY VINEET DEPARTMEN SERVICES T VISIT MODERATE SEVERITY HOSPITAL [facility] - 3 3 [facility] OUTPATIEN INC T EMERGENCY 34349 JUAN JOSE 3 3 [facility] DEPARTMEN INC T VISIT LOW/MODER SEVERITY EMERGENCY 98542 PRIYANKA SEVILLA DEPT 3 3 EMERGENCY NATALIIA VISIT SERVICES HIGH SEVERITY& THREAT [facility] JUAN JOSE - 3 3 [facility] OUTPATIEN INC T EMERGENCY 58391 JUAN JOSE 3 3 [facility] DEPARTMEN INC T VISIT MODERATE SEVERITY EMERGENCY 51346 JUAN JOSE 2 2 [facility] DEPARTMEN INC T VISIT LOW/MODER SEVERITY HOSPITAL JU[facility] JOSE - 2 2 [facility] OUTPATIEN INC T EMERGENCY 39528 PRIYANKA HAMMONDS 2 2 EMERGENCY DEPARTMEN SERVICES T VISIT HIGH/URGE NT SEVERITY EMERGENCY 09737 PRIYANKA YOUNG 2 2 EMERGENCY ARIANNA DEPARTMEN SERVICES T VISIT HIGH/URGE NT SEVERITY EMERGENCY 62473 JUAN JOSE 2 2 [facility] DEPARTMEN INC T VISIT LOW/MODER SEVERITY HOSPITAL JUAN JOSE - 2 2 [facility] OUTPATIEN [facility] T EMERGENCY 06933 PRIYANKA HAMMONDS 2 2 EMERGENCY DEPARTMEN SERVICES T VISIT HIGH/URGE NT SEVERITY EMERGENCY 23531 JUAN JOSE 2 2 [facility] DEPARTMEN INC T VISIT HIGH/URGE NT SEVERITY HOSPITAL JUAN JOSE - 2 2 [facility] OUTPATIEN INC T HOSPITAL JUAN JOSE - 1 1 [facility] T EMERGENCY 79341 JUAN JOSE 1 1 [facility] VISIT LOW/MODER SEVERITY EMERGENCY 97203 JUAN JOSE 1 1 [facility] T VISIT LIMITED/M INOR PROB OFFICE 01683 [facility] MARYANN MARYANN T NEW 30 MINUTES EMERGENCY 54508 PRIYANKA JOHNSON 1 1 EMERGENCY DEPARTMEN SERVICES T VISIT MODERATE SEVERITY HOSPITAL JUAN JOSE - 1 1 [facility] OUTPATIEN [facility] T EMERGENCY 14149 PRIYANKA YOUNG DEPT 1 1 EMERGENCY ARIANNA VISIT SERVICES HIGH SEVERITY& THREAT FUNCJ EMERGENCY 42516 JUAN JOSE 1 1 [facility] DEPARTMEN INC T VISIT MODERATE SEVERITY HOSPITAL JUAN JOSE - 1 1 [facility] OUTPATIEN [facility] T EMERGENCY 32530 PRIYANKA YOUNG DEPT 1 1 EMERGENCY ARIANNA VISIT SERVICES HIGH SEVERITY& THREAT FUNC HOSPITAL JUAN JOSE - 1 1 [facility] OUTPATIEN [facility] T EMERGENCY 95877 JUAN JOSE 1 1 [facility] T VISIT LOW/MODER SEVERITY EMERGENCY 12288 PRIYANKA MUSA 1 1 EMERGENCY DEPARTMEN SERVICES T VISIT HIGH/URGE NT SEVERITY EMERGENCY 77203 PRIYANKA GUNN DEPT 1 1 EMERGENCY SAEED VISIT SERVICES HIGH SEVERITY& THREAT FUNCJ OFFICE 69854 JEFFREY ELIZABETH JEFFREY ELIZABETH OUTPATIEN 1 1 T VISIT 25 MINUTES EMERGENCY 00739 PRIYANKA HURD 1 1 EMERGENCY NARAYAN DEPARTMEN SERVICES T VISIT HIGH/URGE NT SEVERITY PERIODIC 43038 JEFFREY ELIZABETH JEFFREY ELIZABETH PREVENTIV 1 1 E MED EST PATIENT 18-39 YRS EMERGENCY 24680 PRIYANKA YOUNG, DEPT 0 0 EMERGENCY JYOTI S VISIT SERVICES HIGH SEVERITY& ASSOCIATE THREAT S FUNCJ EMERGENCY 87273 [facility]AN JOSE 0 0 [facility] DEPARTMEN INC T VISIT MODERATE SEVERITY HOSPITAL [facility] - 0 0 [facility] OUTPATIEN INC T HOSPITAL JUAN JOSE - 0 0 [facility] OUTPATIEN INC T EMERGENCY 51142 JUAN JOSE 0 0 [facility] DEPARTMEN INC T VISIT MODERATE SEVERITY EMERGENCY 47493 PRIYANKA YOUNG, DEPT 0 0 EMERGENCY JYOTI S VISIT SERVICES HIGH SEVERITY& ASSOCIATE THREAT S FUNJ EMERGENCY 04631 PRIYANKA SPRING, DEPT 0 0 EMERGENCY ARCELIA VISIT SERVICES O HIGH SEVERITY& ASSOCIATE THREAT S FUN HOSPITAL [facility] - 0 0 [facility] OUTPATIEN INC T EMERGENCY 62906 JUAN JOSE 0 0 [facility] DEPARTMEN INC T VISIT LOW/MODER SEVERITY EMERGENCY 69451 [facility] 9 9 [facility] MODERATE SEVERITY EMERGENCY 40062 PRIYANKA BARTON 9 9 EMERGENCY , AJMES DEPARTMEN SERVICES T VISIT HIGH/URGE ASSOCIATE NT S SEVERITY HOSPITAL [facility] - 9 9 N OUTPATIEN COMMUNITY T HOSPITAL OFFICE 04209 JEFFREY MURPHY, OUTPATIEN 9 9 STANLEY Andrade T VISIT 15 MINUTES OFFICE 86815 Dandy BENNETT OUTPATIMARCIN 9 9 JOSE Andrade T VISIT PSC 15 MINUTES HOSPITAL [facility] JOSE - 9 9 [facility] OUTPATIEN INC T EMERGENCY 74579 JUAN JOSE 9 9 [facility] DEPARTMEN INC T VISIT LOW/MODER SEVERITY EMERGENCY 24618 PRIYANKA SPRING, 9 9 EMERGENCY ARCELIA [facility] SERVICES O T VISIT MODERATE ASSOCIATE SEVERITY S EMERGENCY 05516 PRIYANKA CHIANG, 9 9 EMERGENCY NIKKIE R [facility] SERVICES T VISIT MODERATE ASSOCIATE SEVERITY S INITIAL 73505 JEFFREY MURPHY, EUSEBIAIV 9 9 STANLEY Andrade E MEDICINE NEW PT AGE 18-39YRS EMERGENCY 17842 [facility] 9 9 N [facility] COMMUNITY T VISIT HOSPITAL MODERATE SEVERITY HOSPITAL [facility] - 9 9 N OUTPATIEN [facility] T HOSPITAL EMERGENCY 18222 [facility] INC, 9 9 VINEET ELVIS Gregg [facility] T VISIT PHYS INC HIGH/URGE NT SEVERITY EMERGENCY 11820 [facility] RACE, 8 8 VINEET MICHELLE Collazo DEPARTMEN EMERGENCY T VISIT PHYS INC HIGH/URGE NT SEVERITY EMERGENCY 18512 [facility], 8 8 VINEET PADMA [facility] EMERGENCY A T VISIT PHYS INC MODERATE SEVERITY HOSPITAL [facility] - 8 8 N OUTPATIEN [facility] T HOSPITAL EMERGENCY 32861 [facility] 8 VINEET - PRAVEEN [facility] EMERGENCY CELESTINO T VISIT PHYS INC M HIGH/URGE NT SEVERITY EMERGENCY 93217 [facility] 8 8 N [facility] COMMUNITY T VISIT HOSPITAL MODERATE SEVERITY OFFICE 01226 Dandy BENNETT 8 8 JOSE Andrade T VISIT PSC 15 MINUTES HOSPITAL [facility] - 8 8 N OUTPATIEN COMMUNITY T HOSPITAL EMERGENCY 92584 [facility], 8 8 VINEET [facility] EMERGENCY A T VISIT [facility] HIGH/URGE NT SEVERITY EMERGENCY 60044 [facility] 8 8 N [facility] T VISIT [facility] LOW/MODER SEVERITY OFFICE 36628 Dandy BENNETT 8 8 JOSE Andrade T VISIT PSC 15 MINUTES EMERGENCY 78671 JUAN JOSE 8 8 [facility] T VISIT MODERATE SEVERITY HOSPITAL JUAN JOSE - 8 8 [facility] T OFFICE 14909 Dandy BENNETT 8 8 JOSE Nix VISIT PSC 25 MINUTES
--- OUTSIDE RECORDS SUMMARY | 2017-06-07 05:22 | External Medical Summary Rpt | CCD ---
Author Author , ZEYAD Mcadams ZEYAD Address Unknown Phone [email or web address] Care Team Providers Care Ship Manager Name Role Phone TG HAYNES, MAS Unavailable Unavailable [place] AHMED, ROUSE A, Unavailable Unavailable AHMED, ROUSE A BEINEKE HANG, BEINEKE Unavailable Unavailable HANG JAMES MICHAEL, Unavailable Unavailable JAMES MICHAEL [facility] Unavailable Unavailable [facility] PHYSICIAN Unavailable Unavailable PRACTICE L, [facility]available Unavailable SERVICE, [facility] Unavailable Unavailable SERVICE, [facility] CELLAROSI - YORBA, Unavailable [...] Unavailable BRIAN DEANNA BRIAN, NNEKA, Unavailable Unavailable BIRAN, NNEKA [facility] # [id number], Unavailable Unavailable [facility] # [id number] [facility] 2332, Unavailable Unavailable [facility] 2332 DAUKAS SAEED, DAUKAS Unavailable Unavailable [facility], Unavailable [facility]available [facility], Unavailable [facility]available [facility] [place] [facility] [place] [facility] [place] [facility] [place] DENISSE MAT, DENISSE MAT Unavailable Unavailable MICK JAMES, Unavailable Unavailable FARTIO JAMES FINE ALYCIA, FINE ALYCIA Unavailable Unavailable VANNESSA HURD Unavailable Unavailable HURD NARAYAN HURD Unavailable Unavailable NARAYAN HECTOR YOUNG Unavailable Unavailable HECTOR ARIANNA, HECTOR Unavailable Unavailable ARIANNA JYOTI YOUNG S, Unavailable Unavailable JYOTI YOUNG [facility] Unavailable Unavailable [facility] Unavailable Unavailable HOSPITA, [facility] COTTO ELIZABETH, COTTO ELIZABETH Unavailable Unavailable CASSI ALL, Unavailable Unavailable CASSI ALL MELISSA, FELIPA G, Unavailable Unavailable MELISSA, FELIPA G SYBIL BAR, SYBIL BAR Unavailable Unavailable [facility] Un[facility] Un[facility], [facility], Unavailable Unavailable [facility] SONIA III GARDENIA, Unavailable Unavailable SONIA III GARDENIA [facility] Un[facility] Unavailable GROUP PS, [facility], [facility], Unavailable Unavailable [facility] SQUIRES MARYANN, SQUIRES Unavailable Unavailable MARYANN SQUIRES MARYANN, SQUIRES Unavailable Unavailable MARYANN BOOM BREANNA, BOOM JAM Unavailable Unavailable SHIMON GARCIA E, Unavailable Unavailable SHIMON GARCIA E DOLLY DALLAS, DOLLY Unavailable Unavailable DALLAS [facility] Unavailable Unavailable SERVICES, [facility], [facility] SOHAM TRINH, Unavailable Unavailable SOHAM TRINH JOHN R, Unavailable Unavailable NIKKIE CHIANG O'FILIBERTO VINEET, O'FILIBERTO Unavailable Unavailable VINEET [facility], [facility] Unavailable Unavailable LABS, [facility] LAURIE ZELAYA MD Unavailable Unavailable CONSULTING SRV, LAURIE ZELAYA MD CONSULTING [facility] Unavailable Unavailable EMS, [facility] Unavailable Unavailable EMS, [facility], Unavailable Unavailable PLL[facility], [facility] Unavailable Unavailable LAB, [facility] MIKE DOHERTY, Unavailable Unavailable MIKE DOHERTY RACE, MICHELLE F, RACE, Unavailable Unavailable MICHELLE Collazo [facility] Unavailable Unavailable [id number] # [id number], [facility] [id number] # [id number] ROEL BEVERLY Unavailable Unavailable NATALIIA GUNN SAEED, GUNN Unavailable Unavailable SAEED SOKAN BAB, SOKAN BAB Unavailable Unavailable SOKAN, ARCELIA O, Unavailable Unavailable SOKAN, ARCELIA O [facility] JEFFREY ELIZABETH, JEFFREY ELIZABETH Unavailable Unavailable JEFFREY ELIZABETH, JEFFREY ELIZABETH Unavailable Unavailable STANLEY MURPHY, Unavailable Unavailable STANLEY MURPHY [facility], Unavailable Unavailable [facility] Unavailable [facility]available [facility] ELVIS THURSTON, Unavailable Unavailable ELVIS THURSTON [facility] # Unavailable Unavailable [id number], [facility] # [id number] [facility] Unavailable [facility]available DEPT SCO, [facility] Unavailable Unavailable [facility], [facility] WEHRMAN III NATALIIA, Unavailable Unavailable WEHRMAN III NATALIIA MILLIE MCFADDEN, MILLIE MCFADDEN Unavailable Unavailable MILLIE MCFADDEN, MILLIE MCFADDEN Unavailable Unavailable Dandy GARCIA, JOSE, Unavailable Unavailable Dandy WILLIAM, YOUNG Unavailable Unavailable JR NATALIIA PASTORA MAT, PASTORA MAT Unavailable Unavailable Purpose Continuity of Care Document - 08-16-2007 through 2016 Problems Code Diagnosis DOS Provider Status [id number] ENCOUNTER 04-26-2017 [facility] CONTRIBUTION SOLICITOR EXAM DISTRICT GENERAL RTN HLTH DEPT W/O SCO ABNORMAL FIND Z113 ENCOUNTER 04-26-2017 [facility] SCREEN DISTRICT INFECTIONS HLTH DEPT SEXL MODE SCO TRANSMISSN Z1239 ENCOUNTER 04-26-2017 [facility] OTHER DISTRICT SCREENING [facility] DEPT MALIG SCO NEOPLASM BREAST Z3189 ENCOUNTER 04-26-2017 [facility] FOR OTHER DISTRICT PROCREATIVE [facility] DEPT MANAGEMENT SCO A5901 TRICHOMONAL 11-28-2016 [facility] VULV[facility]AGINI PLLC TIS I10 ESSENTIAL 11-28-2016 [facility] HYPERTENSIO INC N Z202 CONTACT 11-28-2016 [facility], EXPOSURE PLLC INFECT SEXUAL MODE TRANSMS Z720 TOBACCO USE 11-28-2016 [facility] INC M542 CERVICALGIA 05-08-2016 [facility] [place] [facility] J22425 OTHER 05-08-2016 [facility] MUSCLE N EMERGENCY SPASM PHYS U549DNM STRAIN 05-08-2016 [facility] MUSCLE FASC N EMERGENCY & TENDON PHYS NECK LEVL INIT ENC Y9389 ACTIVITY 05-08-2016 [facility] OTHER N EMERGENCY SPECIFIED PHYS R404 TRANSIENT 04-04-2016 [facility] ALTERATION [place] [facility] AWARENESS [id number] UNS ADVERS 04-04-2016 [facility] EFFECT [place] DRUG/MEDICA [facility] MENT INITIAL ENCNTR Z4801 ENCOUNTER 03-20-2016 [facility] CHANGE/TIMMY N EMERGENCY LUDY PHYS SURGICAL WOUND DRESSING Z4802 ENCOUNTER 03-20-2016 [place] [facility] D1730 BENIGN 03-05-2016 [place] LIPOMATOUS PHYSICIAN NEOPLASM PRACTICE L SKIN & SUBQ UNS SITE D1779 BENIGN 03-05-2016 [facility] NEOPLASM OF OTHER SITES L989 DISORDER 03-05-2016 [place] [facility] SUBCUTANEOU GROUP PS S TISSUE UNS R2242 LOCALIZED 03-05-2016 [place] SWELLING PHYSICIAN MASS AND PRACTICE L LUMP LEFT LOWER LIMB M799 SOFT TISSUE 02-20-2016 [place] DISORDER PHYSICIAN UNSPECIFIED PRACTICE L 86563 UNSPECIFIED 02-19-2015 [facility] SITE OF PHYSICIANS, ANKLE PLLC SPRAIN AND STRAIN 65974 OTHER 06-14-2014 [facility]ATION AMBULANCE OF SERVICE [facility] 24299 UNSPECIFIED 04-05-2014 [facility] VIRAL SERV HEPATITIS C FOUNDATION W/O HEPATIC COMA 7906 OTHER 04-05-2014 [place] [facility] ABNORMAL SERV BLOOD [facility] CHEMISTRY 34989 ABDOMINAL 03-25-2014 [facility] UNSPECIFIED SITE 90938 OTHER ACUTE 03-14-2014 [facility] POSTOPERATI FOUNDAT[facility] VE PAIN 7823 EDEMA 03-14-2014 [place] [facility] 22083 ABDOMINAL 03-14-2014 [facility] PAIN RIGHT SERV UPPER [facility] QUADRANT V1209 PERSONAL HX 03-14-2014 [facility] OTH [facility] INFECTIOUS& FOUNDATIO PARASITIC DISEASE V1279 PERSONAL 03-14-2014 [facility] HISTORY OTH SERV DISEASES [facility] DIGESTIVE DISEASE 95871 CALCU 03-11-2014 [facility] W/OTH HOSPI CHOLECYST W/O MENTION OBST 14335 CALCU 03-10-2014 [facility] GALLBLADD SERV W/O MENTION FOUNDATIO CHOLECYST/O BST 69309 CHOLECYSTIT 03-10-2014 [facility] IS, SERV UNSPECIFIED FOUNDATIO 5990 URINARY 03-10-2014 [facility] TRACT SERV INFECTION [facility] SITE NOT SPECIFIED 48937 VOMITING 03-10-2014 [place] [facility] 6820 CELLULITIS 02-09-2014 [facility] AND ABSCESS OF FACE 82836 OTHER 05-01-2013 [place] DISEASES OF MEDICAL SPLEEN IMAGING ASS 43383 OTHER 05-01-2013 [place] DISEASES OF MEDICAL LUNG NOT IMAGING ASS ELSEWHERE CLASSIFIED 5759 UNSPECIFIED 05-01-2013 [place] DISORDER MEDICAL OF IMAGING ASS GALLBLADDER 33762 NAUSEA WITH 05-01-2013 [facility] 4019 UNSPECIFIED 01-07-2013 [facility] ESSENTIAL [facility] HYPERTENSIO SERVICES N 90277 HYPERTROPHY 01-07-2013 [place] OF TONSILS MEDICAL ALONE IMAGING ASS 7231 CERVICALGIA 01-07-2013 [facility] 9160 HIP THI 10-03-2012 [facility] ABRASION/FR INC ICION BURN W/O INF 9597 INJURY 10-03-2012 [facility] OTHER&UNSPE EMERGENCY CIFIED KNEE SERVICES LEG ANKLE&FOOT 4660 ACUTE 07-11-2012 [facility] BRONCHITIS EMERGENCY SERVICES 5259 UNSPECIFIED 10-03-2011 [facility] DISORDER [facility]ERGENCY TEETH&SUPPO SERVICES RTING STRUCTURES 04558 OTHER 10-03-2011 [facility] SPEC[facility] COMPLICATIO INC NS NEC 6149 UNSPEC 09-03-2011 [facility] INFLAM EMERGENCY DISEASE FE SERVICES PELVIC ORGANS&TISS UES 8020 NASAL 05-03-2011 [facility] CLOSED INC FRACTURE 470 DEVIATED 04-27-2011 SQUIRES MARYANN NASAL SEPTUM 31862 OTHER 04-27-2011 [facility] DISEASES OF EMERGENCY NASAL SERVICES CAVITY AND SINUSES 920 CONTUSION 04-25-2011 [place] OF FACE EMERGENCY SCALP AND SERVICES NECK EXCEPT EYE 30513 HORDEOLUM 02-15-2011 [facility]NUM [facility] INC 98330 ABSCESS OF 02-15-2011 [facility] EYELID [facility] 7840 HEADACHE 02-15-2011 [place] [facility] 4659 ACUTE URIS 11-29-2010 [facility] OF EMERGENCY UNSPECIFIED SERVICES SITE 6256 FEMALE 11-29-2010 [facility] STRESS EMERGENCY INCONTINENC SERVICES E 00518 WHEEZING 11-29-2010 [facility] [place] [facility] 84104 HEAD 09-08-2010 [facility] [place] INJURY, RADIOLOGY UNSPECIFIED E9179 OTHER 09-08-2010 [facility] STRIKING EMERGENCY AGAINST SERVICES W/WO SUBSEQUENT FALL 6250 DYSPAREUNIA 09-04-2010 [facility] ELIZABETH 6253 DYSMENORRHE 09-04-2010 JEFF[facility] ELIZABETH A 45261 ABDOMINAL 09-04-2010 JEFF[facility] ELIZABETH PAIN RIGHT LOWER QUADRANT 99351 ABDOMINAL 09-04-2010 JEFFREY ELIZABETH PAIN, LEFT LOWER QUADRANT 6262 EXCESSIVE 09-03-2010 [facility] OR FREQUENT EMERGENCY SERVICES MENSTRUATIO N V154 PERS HX 08-26-2010 DEPT FOR PSYCHOLOGIC PUBLIC HLTH AL TRAUMA PRS [facility] 64622 UNSPECIFIED 07-22-2010 JEFF[facility] ELIZABETH VAGINITIS AND VULVOVAGINI TIS V7231 ROUTINE 07-22-2010 [facility] ELIZAB[facility] GYNECOLOGIC AL EXAMINATION V5869 LONG-TERM 01-23-2010 LAURIE ZELAYA (CURRENT) USE OF CONSULTING OTHER SRV MEDICATIONS 5110 PLEURISY 12-08-2009 [facility] M[facility]ION [facility] EFFUS/[place] [address] CHEST PAIN 12-08-2009 [place] UNSPECIFIED [facility] 6826 CELLULITIS 12-03-2009 [facility] AND ABSCESS [facility] OF LEG INC EXCEPT FOOT 8470 NECK SPRAIN 11-19-2009 PRI[facility]ANKA AND STRAIN EMERGENCY SERVICES ASSOCIATES 6235 LEUKORRHEA 05-27-2009 [facility] NOT EMERGENCY SPECIFIED SERVICES ASSOCIATES INFECTIVE V016 CONTACT 05-27-2009 [facility] WITH OR EMERGENCY EXPOSURE TO SERVICES VENEREAL ASSOCIATES DISEASES 08935 TRICHOMONAL 04-05-2009 [facility]ICAL DIAGNOSTIC [facility] TIS 6264 IRREGULAR 04-05-2009 [facility] MENSTRUAL DIAGNOSTIC CYCLE [facility] 53756 GENERALIZED 03-21-2009 A Raymond GARCIA ANXIETY PSC DISORDER 7242 LUMBAGO 03-21-2009 A Raymond GARCIA MD PSC 8930 OPEN WOUND 03-13-2009 [facility] TOE WITHOUT EMERGENCY MENTION SERVICES COMPLICATIO ASSOCIATES N 6228 OTHER 09-18-2008 PATHOLOGY & 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 9181 SUPERFICIAL 08-29-2008 [facility] INJURY OF N EMERGENCY CORNEA PHYS INC 9182 SUPERFICIAL 08-29-2008 [facility] INJURY OF N EMERGENCY CONJUNCTIVA PHYS INC E914 FOREIGN 08-29-2008 [facility] BODY N EMERGENCY ACCIDENTALL PHYS INC Y ENTERING EYE&ADNEXA 7862 COUGH 07-15-2008 [facility] N EMERGENCY PHYS INC 78066 OTHER CHEST 07-15-2008 [facility] PAIN N EMERGENCY PHYS INC 99988 UNSPECIFIED 03-19-2008 [facility] N EMERGENCY TEMPOROMAND PHYS INC IBULAR JOINT DISORDERS 7821 RASH AND 03-19-2008 [facility] OTHER N EMERGENCY NONSPECIFIC PHYS INC SKIN ERUPTION 37862 OTHER 09-06-2007 A Raymond GARCIA DISORDER OF PSC COCCYX 9222 CONTUSION 09-04-2007 [facility] ABDOMINAL IMAGING WALL ASSOCIATES 81894 CONTUSION 09-04-2007 [place] OF BACK MEDICAL IM[facility] ASS[facility] 37612 OTHER 09-04-2007 [facility] INJURY OF AMBULANCE OTHER SITES SERVICE OF TRUNK E8490 PLACE OF 09-04-2007 [facility], MEDICAL HOME IMAGING ASSOCIATES E8809 ACCIDENTAL 09-04-2007 [place] FALL ON OR MEDICAL FROM OTHER IMAGING [...] 20 20 RT 1 00 11 11 VT 1 PH CH AR AE MA L CY S # 10 05 91 CE 68 10 10 0 21 7 WA 71 GA Ac PH 18 -2 -2 .0 L- 41 IN ti AL 00 9- 9- 00 MA 03 EY ve EX 12 20 20 RT 2 IN 20 11 11 VT 1 PH CH 50 AR AE 0 [...] 34 20 20 DE 90 11 11 VT 1 PH CH AR AE MA L CY S OF CY NT HI AN A CE 00 08 08 0 30 10 EA 23 GA Ac PH 09 -2 -[address] 76 IN ti AL 33 2- 2- 00 SI 21 EY ve EX 14 20 20 DE IN 70 11 11 VT 5 PH CH 50 AR AE 0 [...] 33 10 2 0 MG CA P VT 00 06 06 0 10 5 CV [...] 20 20 AI 70 10 10 D VT 5 PH CH AR AE MA L CY S 03 93 8 # 03 93 DI 00 06 06 14 7 RI 83 GA Ac CL 78 -1 -1 .0 TE 78 IN ti OF 11 3- 3- 00 01 EY ve EN 78 20 20 AI AC 90 10 10 D VT 1 PH CH SO AR AE D [...] AR ZA 11 10 10 MA RA VT 0 CY ME IN # SH E [...] 01 60 30 CV 26 KN Ac VT 09 -1 -2 .0 S 75 IG [...] 01 60 30 CV 26 KN Ac VT 09 -1 -2 .0 S 75 IG [...] 8- 7- 00 PH 79 HT ve VT 51 20 20 AR OD 30 09 [...] 00 60 30 CV 26 KN Ac VT 09 -1 -2 .0 S 75 IG [...] 00 20 10 CV 18 BE Ac VT 09 -2 -0 .0 S 94 NN [...] ai ZA 11 08 08 MA la VT 0 CY bl IN e E 23 [...] Procedure DOS Code Location Performer Comment IADNA 01282 JOCELIN MONREAL CHLAMYDIA [address] [facility] DEPT HLTH DEPT TRACHOMAT SCO SCO IS AMPLIFIED PROBE TQ CYTP 57925 [facility] PICKLES CERV/VAG 7 LLC ER JR AUTO THIN LAYER PREP MNL SCREEN IADNA 39230 JOCELIN MONREAL NEISSERIA [address] [facility] DEPT HLTH DEPT GONORRHOE SCO SCO AE AMPLIFIED PROBE TQ CULTURE 32379 [facility] BACTERIAL 7 [facility] INC INC QUANTTATI VE COLONY COUNT URINE SMR PRIM 45135 [facility] SRC WET 7 [facility] MOUNT INC INC NFCT AGT URNLS DIP 16838 [facility] INGRAM 7 [facility] STICK/TAB INC INC LET REAGENT AUTO MICROSCOP Y RADEX 11-11-201 31858 [facility] [place] SONIA SPINE 6 RADIOLOGY III [place] CERVICAL 2 OR 3 VIEWS INJECTION J1885 [facility] 6 N N KETOROLAC COMMUNTIY COMMUNTIY HOSPITA HOSPITA TROMETHAM INE PER 15 MG INJECTION J2360 [facility] 6 N N ORPHENADR COMMUNTIY COMMUNTIY INE HOSPITA HOSPITA CITRATE UP TO 60 MG AMB A0427 [facility] SERVICE 6 [facility] EMERGENCY EMS EMS TRANSPORT LEVEL 1 GROUND A0425 [facility] MILEAGE 6 [facility] STATUTE EMS EMS MILE LEVEL III 01539 [facility], RIGO TER SURG 6 LLC PATHOLOGY GROSS&ARIANNA ROSCOPIC EXAM EXCISON 29904 [facility] FINE ALYCIA TUMOR 6 PHYSICIAN SOFT PRACTICE TISSUE L THIGH/KNE E SUBQ 3 CM/> ANES 17441 [place] DAUKA INTEG 6 ANESTHESI SAEED EXTREMITI A GROUP ES ANT PS TRUNK & PERINEUM NOS GROUND A0425 [facility] MILEAGE 4 AMBULANCE AMBULANCE PER SERVICE SERVICE STATUTE MILE AMB A0427 [facility] SERVICE 4 AMBULANCE AMBULANCE ALS SERVICE SERVICE EMERGENCY TRANSPORT LEVEL 1 URNLS DIP 47093 [facility] 4 Y Y STICK/TAB [facility] LET RGNT AUTO W/O MICROSCOP Y URINE 64406 [facility] 4 Y Y TEST [facility] [place] [address] [place] ABDOMINAL 4 MEDICAL REAL SERV TIME FOUNDATIO W/IMAGE LIMITED LAPAROSCO 91121 [place] TOBAR PHI PY SURG 4 MEDICAL CHOLECYST SERV ECTOMY FOUNDATIO LEVEL III 91292 [facility] SURG 4 Y OF VIR PATHOLOGY [place] [facility] GROSS&ARIANNA ROSCOPIC EXAM ANES 33016 [place] INTRAPERI 4 MEDICAL MEDICAL TONEAL SERV SERV UPPER FOUNDATIO FOUNDATIO ABDOMEN W/[place] [address] [place] [facility] A[facility] & 4 MEDICAL HANG PELVIS IMAGING [place] [address] [place] JAMES ABDOMINAL 4 MEDICAL MICHAEL REAL SERV TIME FOUNDATIO W/[place] [address] MARIBELL BRIAN ABDOMEN & 3 MEDICAL DEANNA PELVIS IMAGING W/CONTRAS ASS T MATERIAL 3D 64091 MARIBELL BRIAN RENDERING 3 MEDICAL DEANNA IMAGING W/INTERP& ASS POSTPROC DIFF WORK STATION 3D 98461 MARIBELL BRIAN RENDERING 3 MEDICAL DEANNA IMAGING W/INTERP& ASS POSTPROC DIFF WORK STATION CT SOFT 18792 MARIBELL BRIAN TISSUE 3 MEDICAL DEANNA NECK IMAGING W/CONTRAS ASS T MATERIAL COMPREHEN 28128 [facility] SIVE 3 [facility] [place] [address] [facility] INFUSION 3 [facility] THER INC INC PROPH ADDL SEQUENTIA L TO 1 HR IAADI 22891 [facility] INFLUENZA 3 [facility] B VIRUS INC INC IAADI 55533 [facility] IN[facility] INFFLUENZ 3 [facility] [place] [address] [facility] ABDOMEN & 3 MEM HOS[facility] MEM HOSP PELVIS INC INC W/O CONTRAST MATERIAL 3D 29134 [facility] INGRAM RENDERING 3 [facility]OS[facility] INC INC W/INTERP& POSTPROC DIFF WORK STATION URNLS DIP 13298 [facility] INGRAM 3 [facility] STICK/TAB INC INC LET REAGENT AUTO MICROSCOP Y BLOOD 57319 [facility] COUNT 3 [facility] COMPLETE INC INC AUTO&AUTO DIFRNTL WBC RADIOLOGI 47856 [facility] C EXAM 3 [facility]OS[facility] CHEST 2 INC INC VIEWS FRONTAL&L ATERAL PRESSURIZ 20646 [facility] ED/NONPRE 3 MEM [facility] MEM [facility] SSURIZED [place] [address] [facility] INFUSION 3 [facility] THERAPY/P INC INC ROPHYLAXI S /DX 1ST TO 1 HR URINE 81798 [facility] INGRAM 3 [facility] TEST INC INC VISUAL COLOR CMPRSN METHS PRESSURIZ 20584 [facility] IN[facility] ED/NONPRE 2 MEM [facility]OS[facility] SSURIZED INC INC INHALATIO N TREATMENT RADIOLOGI 86574 [facility] NIGRAM Raymond EXAM 2 MEM HOSP MEM HOSP CHEST 2 INC INC VIEWS FRONTAL&L ATERAL IAADI 63319 [facility] INGRAM INFFLUENZ 2 MEM HOSP MEM HOSP A A VIRUS INC INC IAADI 99584 [facility] INGRAM INFLUENZA 2 MEM [facility]OS[facility] [place] [address] [facility] INGRAM STREPTOCO 2 MEM HOS[facility]OS[facility] CCUS INC INC GROUP A SUSCEPTIB 81107 [facility] LTY STDY 2 MEM HOS[facility] MEM [facility]OS[facility] ANTIMICRB INC INC IAL MICRO/AGA R DILUTJ URNLS DIP 91157 [facility] INGRAM 2 [facility]OS[facility] STICK/TAB INC INC LET REAGENT AUTO MICROSCOP Y URINE 68418 [facility] INGRAM 2 [facility] TEST INC INC VISUAL COLOR CMPRSN METHS CULTURE 89494 [facility] IN[facility] BCT 2 [facility] ISOL&PRSM INC INC PTV ID ISOLATE EA URINE CULTURE 18175 [facility] BACTERIAL 2 [facility] INC INC QUANTTATI VE COLONY COUNT URINE SMR PRIM 73273 [facility] IN[facility] SRC WET [address] [facility] INC INC NFCT AGT 3D 43604 [facility] INGRAM RENDERING 1 MEM HOS[facility] INC INC W/INTERP& [place] [address] [facility] INGRAM MAXILLOFA 1 [facility] CIAL W/O INC INC CONTRAST MATERIAL CLOSED 07577 PRIYANKA YOUNG TREATMENT 1 EMERGENCY ARIANNA NASAL SERVICES FRACTURE W/[place] [address] MARIBELL DOOLEYUTCHER MAXILLOFA 1 MEDICAL DEANNA CIAL W/O IMAGING CONTRAST ASS MATERIAL 3D 12246 MARIBELL BRIAN RENDERING 1 MEDICAL DEANNA IMAGING W/INTERP& ASS POSTPROC DIFF WORK STATION RADIOLOGI 39325 [facility] MUSA C EXAM 1 RADIOLOGY CHEST 2 VIEWS FRONTAL&[place] [address] [facility] COON HEAD/BRAI 1 RADIOLOGY N W/O CONTRAST MATERIAL IADNA 50803 PATHOLOGY PATHOLOGY CHLAMYDIA 1 & & CYTOLOGY CYTOLOGY TRACHOMAT LAB LAB IS AMPLIFIED PROBE TQ SMR PRIM 93664 JEFFREY ELIZABETH JEFFREY ELIZABETH SRC WET 1 MOUNT NFCT AGT IADNA 92619 PATHOLOGY PATHOLOGY NEISSERIA 1 & & CYTOLOGY CYTOLOGY GONORRHOE LAB LAB AE AMPLIFIED PROBE TQ CYTP C/V 94815 PATHOLOGY PATHOLOGY AUTO THIN 1 & & LYR CYTOLOGY CYTOLOGY PREPJ SCR LAB LAB MNL RESCR PHYS ECG 10728 LAURIE ZELAYA ZELAYA LAURIE ROUTINE 0 MD ECG CONSULTIN W/LEAST G SRV 12 LDS I&R ONLY RHYTHM 50935 [facility] ECG 1-3 0 [facility] LEADS INC INC TRACING ONLY W/O I&R BLOOD 84966 [facility] IN[facility] COUNT 0 [facility] COMPLETE INC INC AUTO&[place] [address] [facility] IN[facility] TROPONIN 0 [facility] QUANTITAT INC INC NOE RADIOLOGI 26654 [place] GAYATHRI, C 0 MEDICAL SOHAM P EXAMINATI IMAGING ON CHEST ASSOCIATE SINGLE S VIEW FRONTAL BASIC 21894 [facility] INGRAM METABOLIC 0 [facility] PANEL INC INC CALCIUM TOTAL ECG 81286 [facility] IN[facility] ROUTINE 0 [facility] ECG INC INC W/LEAST 12 LDS TRCG ONLY W/O I&R ECG 47338 [facility] RADHA, ROUTINE 0 [facility] ECG HOSPITAL W/LEAST PROF SERV 12 LDS I&R ONLY CREATINE 71387 [facility] INGRAM KINASE MB 0 [facility] FRACTION INC INC ONLY CREATINE 71739 [facility] IN[facility] KINASE 0 [facility] TOTAL INC INC FIBRIN 60044 [facility] JOSE INGRAM DGRADJ 0 [facility] PRODUCTS INC INC D-DIMER QUAL/SEMI HONG CUL BACT 02395 JUAN JOSE INGRAM XCPT 0 [facility] URINE INC INC BLOOD/STO OL AEROBIC ISOL CUL BACT 81186 JUAN JOSE INGRAM AEROBIC 0 [facility] ADDL INC INC METHS DEFINITIV E EA ISOL SUSCEPTIB 22059 JUAN JOSE INGRAM LTY STDY 0 [facility] ANTIMICRB INC INC IAL MICRO/AGA R DILUTJ OTH 8604 JUAN JOSE INGRAM INCISION 0 [facility] W/DRAINAG INC INC E SKIN&SUBC UTANEOUS TISSUE 3D 87099 MARIBELL BRIAN, RENDERING 0 [facility]ICAL NNEKA W/INTERP IMAGING & [place] [address] MARIBELL BRIAN, CERVICAL 0 MEDICAL NNEKA SPINE W/[place] [address] MARIBELL BRIAN, HEAD/BRAI 0 MEDICAL NNEKA N W/O IMAGING CONTRAST ASSOCIATE MATERIAL S 3D 93812 [facility] BRIAN, RENDERING 0 MEDICAL NNEKA IMAGING W/INTERP& ASSOCIATE POSTPROC S DIFF WORK STATION ECG 78914 LAURIE ZELAYA ZELAYA, ROUTINE 0 MD PAUL Dorman ECG CONSULTIN W/LEAST G SRV PSC 12 LDS I&R ONLY INJECTION [id number] [facility] 9 N N CEFTRIAXO [facility] PER 250 MG URNLS DIP 29061 [facility] 9 N N STICK/TAB [facility] REAGENT AUTO MICROSCOP Y TISS PERRY 30556 [facility] SLIDE [address] [facility] SKN/HR/NL HOSPITAL HOSPITAL S FNGI/ECTO PARASIT IADNA 56259 [facility] CHLAMYDIA [address] [facility] PNEUMONIA [facility] HOSPITAL E DIRECT PROBE TQ SMR PRIM 28256 [facility] SRC WET [address] [facility] NFCT AGT [facility] URINE 45525 [facility] [address] [facility] VISUAL [facility] COLOR CMPRSN METHS IADNA 00803 [facility] NEISSERIA [address] [facility] GONORRHOE [facility] AE DIRECT PROBE TQ IADNA 60447 [facility] NEISSERIA 9 [facility]AGNOSTI [facility] GONORRHOE AE AMPLIFIED PROBE TQ IADNA NOS 98206 [facility] 9 DIAGNOSTI DIAGNOSTI AMPLIFIED [facility] PROBE TQ EACH ORGANISM SMR PRIM 78496 JEFFREY, JEFFREY, SRC WET 9 [place] C [facility] [place] NFCT AGT IADNA 61756 [facility] CHLAMYDIA 9 DIAGNOSTI DIAGNOSTI [facility] TRACHOMAT IS AMPLIFIED PROBE TQ INCISION 84526 PRIYANKA MARIIA, & 9 EMERGENCY NIKKIE R DRAINAGE SERVICES ABSCESS SIMPLE/SI ASSOCIATE NGLE S IADNA 24906 PATHOLOGY PATHOLOGY CHLAMYDIA 9 & & CYTOLOGY CYTOLOGY TRACHOMAT LAB LAB IS AMPLIFIED PROBE TQ IADNA 31468 PATHOLOGY PATHOLOGY NEISSERIA 9 & & CYTOLOGY CYTOLOGY GONORRHOE LAB LAB AE AMPLIFIED PROBE TQ CYTP C/V 98518 PATHOLOGY PATHOLOGY AUTO THIN 9 & & LYR CYTOLOGY CYTOLOGY PREPJ SCR LAB LAB MNL RESCR PHYS RADIOLOGI 46302 [facility] [place] MELISSA, C EXAM 9 RADIOLOGY FELIPA G CHEST 2 VIEWS FRONTAL&L ATERAL RADEX 77562 [facility] [place] MELISSA, SPINE 8 RADIOLOGY FELIPA G CERVICAL 4 OR 5 VIEWS RADEX 83229 [facility] SPINE [address] [facility] 2 OR [address] [place] [address] [facility] CERVICAL 8 N N SPINE W/O [facility] MATERIAL COMPREHEN 84154 [facility] SIVE 8 N N METABOLIC [facility] URNLS DIP 57512 [facility] 8 N N STICK/TAB [facility] REAGENT AUTO MICROSCOP Y GONADOTRO 32729 [facility] PIN 8 N N CHORIONIC [facility] QUALITATI VE BLOOD 75576 [facility] COUNT [address] [facility] AUTO&AUTO [facility] DIFRNTL WBC URINALYSI 21189 [facility] S [address] [facility] IC ONLY [facility] COLLECTIO 69659 [facility] N VENOUS [address] [facility] URE RADEX 22949 [place] BRIAN, SPINE 8 MEDICAL NNEKA LUMBOSACR IMAGING AL ASSOCIATE MINIMUM 4 S VIEWS RADEX 98141 MARIBELL DOOLEYUTCHER, SACRUM & 8 MEDICAL NNEKA COCCYX IMAGING MINIMUM 2 ASSOCIATE VIEWS S GROUND A0425 [facility] MILEAGE 8 AMBULANCE AMBULANCE PER SERVICE SERVICE STATUTE MILE AMBULANCE A0429 [facility] SERVICE 8 AMBULANCE AMBULANCE BLS SERVICE SERVICE EMERGENCY TRANSPORT RADIOLOGI 25270 MARIBELL TORRES C 8 MEDICAL NNEKA EXAMINATI IMAGING ON PELVIS ASSOCIATE 1/2 S VIEWS Encounters Encounter Start End Date Code Location Performer Type Date PERIODIC 53875 [facility] EST HLTH DEPT HLTH DEPT PATIENT SCO SCO 40-64YRS EMERGENCY 25381 JUAN JOSE 7 7 [facility] INC T VISIT LOW/MODER SEVERITY HOSPITAL JUAN JOSE - 7 7 [facility] OUTPATIEN INC T EMERGENCY 86570 PERCY YOUNG 7 7 PHYSICIAN ANNE DE LEONC T VISIT HIGH/URGE NT SEVERITY EMERGENCY 13807 [facility] 6 6 [facility] EMERGENCY T VISIT PHYS HIGH/URGE NT SEVERITY HOSPITAL [facility] 05227 [facility] 6 6 N [facility] MODERATE SEVERITY [facility] 6 6 [facility] T [facility]ERGENCY 33262 [facility] 6 6 [facility] T VISIT LIMITED/M INOR PROB OFFICE 22203 SWAP[facility]IL TONG [facility] 6 6 PHYSICIAN T NEW 30 PRACTICE MINUTES L EMERGENCY 02029 PERCY ALBERTO 5 5 PHYSICIAN ANNE QUINTANAC T VISIT MODERATE SEVERITY OFFICE 68442 [facility] OUTPATIEN 4 4 MEDICAL ALL T NEW 45 SERV MINUTES FOUNDATIO N HOSPITAL [facility] - 4 4 [facility] 67016 RUTH BRAYAN DOHERTY 4 4 MEDICAL NATALIIA DEPARTMEN SERV T VISIT FOUNDATIO HIGH/URGE NT SEVERITY EMERGENCY 98288 RUTH MAS DEPT 4 4 MEDICAL [place] VISIT SERV HIGH FOUNDATIO SEVERITY& THREAT FUNJ EMERGENCY 68139 MILLIE MCFADDEN MILLIE MCFADDEN 4 4 DEPARTMEN T VISIT MODERATE SEVERITY EMERGENCY 79526 PRIYANKA JIMENEZ DEPT 3 3 EMERGENCY III NAATLIIA VISIT SERVICES HIGH SEVERITY& THREAT FUNCJ EMERGENCY 55498 PRIYANKA YOUNG 3 3 EMERGENCY ARIANNA DEPARTMEN SERVICES T VISIT HIGH/URGE NT SEVERITY EMERGENCY 53542 PRIYANKA ALBERTS 3 3 EMERGENCY VINEET DEPARTMEN SERVICES T VISIT MODERATE SEVERITY HOSPITAL [facility] - 3 3 [facility] OUTPATIEN INC T EMERGENCY 94856 JUAN JOSE 3 3 [facility] DEPARTMEN INC T VISIT LOW/MODER SEVERITY EMERGENCY 85638 PRIYANKA SEVILLA DEPT 3 3 EMERGENCY NATALIIA VISIT SERVICES HIGH SEVERITY& [facility]AT [facility] JUAN JOSE - 3 3 [facility] OUTPATIEN INC T EMERGENCY 25388 JUAN JOSE 3 3 [facility] DEPARTMEN INC T VISIT MODERATE SEVERITY EMERGENCY 05222 JUAN JOSE 2 2 [facility] DEPARTMEN INC T VISIT LOW/MODER SEVERITY HOSPITAL JUAN JOSE - 2 2 [facility] OUTPATIEN INC T EMERGENCY 12368 PRIYANKA HAMMONDS 2 2 EMERGENCY DEPARTMEN SERVICES T VISIT HIGH/URGE NT SEVERITY EMERGENCY 22447 PRIYANKA YOUNG 2 2 EMERGENCY ARIANNA DEPARTMEN SERVICES T VISIT HIGH/URGE NT SEVERITY EMERGENCY 32222 JUAN JOSE 2 2 [facility] DEPARTMEN INC T VISIT LOW/MODER SEVERITY HOSPITAL JUAN JOSE - 2 2 [facility] OUTPATIEN [facility] T EMERGENCY 99395 PRIYANKA HAMMONDS 2 2 EMERGENCY DEPARTMEN SERVICES T VISIT HIGH/URGE NT SEVERITY EMERGENCY 03087 JUAN JOSE 2 2 [facility] DEPARTMEN INC T VISIT HIGH/URGE NT SEVERITY HOSPITAL JUAN JOSE - 2 2 [facility] OUTPATIEN INC T HOSPITAL JUAN JOSE - 1 1 [facility] OUTPATIEN [facility] T EMERGENCY 45265 JUAN JOSE 1 1 [facility] VISIT LOW/MODER SEVERITY EMERGENCY 38294 JUAN JOSE 1 1 [facility] T VISIT LIMITED/M INOR PROB OFFICE 53306 [facility]QU[facility]ES [facility] MARYANN MARYANN T NEW 30 MINUTES EMERGENCY 28809 PRIYANKA JOHNSON 1 1 EMERGENCY DEPARTMEN SERVICES T VISIT MODERATE SEVERITY HOSPITAL JUAN JOSE - 1 1 [facility] OUTPATIEN [facility] T EMERGENCY 50527 PRIYANKA YOUNG DEPT 1 1 EMERGENCY ARIANNA VISIT SERVICES HIGH SEVERITY& THREAT FUNCJ EMERGENCY 22653 JUAN JOSE 1 1 [facility] DEPARTMEN INC T VISIT MODERATE SEVERITY HOSPITAL JUAN JOSE - 1 1 [facility] OUTPATIEN [facility] T EMERGENCY 41931 PRIYANKA YOUNG DEPT 1 1 EMERGENCY ARIANNA VISIT SERVICES HIGH SEVERITY& THREAT FUNC HOSPITAL JUAN JOSE - 1 1 [facility] OUTPATIEN [facility] T EMERGENCY 67798 JUAN JOSE 1 1 [facility] VISIT LOW/MODER SEVERITY EMERGENCY 01920 PRIYANKA MUSA 1 1 EMERGENCY DEPARTMEN SERVICES T VISIT HIGH/URGE NT SEVERITY EMERGENCY 25498 PRIYANKA GUNN DEPT 1 1 EMERGENCY SAEED VISIT SERVICES HIGH SEVERITY& THREAT FUNCJ OFFICE 70211 JEFFREY ELIZABETH JEFFREY ELIZABETH OUTPATIEN 1 1 T VISIT 25 MINUTES EMERGENCY 60706 PRIYANKA HURD 1 1 EMERGENCY NARAYAN DEPARTMEN SERVICES T VISIT HIGH/URGE NT SEVERITY PERIODIC 24099 JEFFREY ELIZABETH JEFFREY ELIZABETH PREVENTIV 1 1 E MED EST PATIENT 18-39 YRS EMERGENCY 08725 PRIYANKA YOUNG, DEPT 0 0 EMERGENCY JYOTI S VISIT SERVICES HIGH SEVERITY& ASSOCIATE THREAT S FUNCJ EMERGENCY 06159 JUAN JOSE 0 0 [facility] DEPARTMEN INC T VISIT MODERATE SEVERITY HOSPITAL J[facility] JOSE - 0 0 [facility] OUTPATIEN INC T HOSPITAL JUAN JOSE - 0 0 [facility] OUTPATIEN INC T EMERGENCY 38713 JUAN JOSE 0 0 [facility] DEPARTMEN INC T VISIT MODERATE SEVERITY EMERGENCY 32518 PRIYANKA YOUNG, DEPT 0 0 EMERGENCY JYOTI S VISIT SERVICES HIGH SEVERITY& ASSOCIATE THREAT S FUNJ EMERGENCY 25300 PRIYANKA SPRING, DEPT 0 0 EMERGENCY ARCELIA VISIT SERVICES O HIGH SEVERITY& ASSOCIATE THREAT S FUN HOSPITAL JUAN JOSE - 0 0 [facility] OUTPATIEN INC T EMERGENCY 93409 JUAN JOSE 0 0 [facility] DEPARTMEN INC T VISIT LOW/MODER SEVERITY EMERGENCY 24348 [facility] 9 9 N [facility]OSP[facility] MODERATE SEVERITY EMERGENCY 27730 PRIYANKA BARTON 9 9 EMERGENCY , JAMES DEPARTMEN SERVICES T VISIT HIGH/URGE ASSOCIATE NT S SEVERITY HOSPITAL [facility] - 9 9 N OUTPATIEN COMMUNITY T HOSPITAL OFFICE 21183 JEFFREY MURPHY, OUTPATIEN 9 9 STANLEY Andrade T VISIT 15 MINUTES OFFICE 19798 Dandy BENNETT OUTPATIMARCIN 9 9 JOSE Andrade T VISIT PSC 15 MINUTES HOSPITAL JUAN JOSE - 9 9 [facility] OUTPATIEN INC T EMERGENCY 13243 JUAN JOSE 9 9 [facility] DEPARTMEN INC T VISIT LOW/MODER SEVERITY EMERGENCY 97872 PRIYANKA SPRING, 9 9 EMERGENCY ARCELIA [facility] SERVICES O T VISIT MODERATE ASSOCIATE SEVERITY S EMERGENCY 95275 PRIYANKA CHIANG, 9 9 EMERGENCY NIKKIE R [facility] SERVICES T VISIT MODERATE ASSOCIATE SEVERITY S INITIAL 15718 JEFFREY MURPHY, EUSEBIAIV 9 9 STANLEY Andrade E MEDICINE NEW PT AGE 18-39YRS EMERGENCY 76984 [facility] 9 9 N [facility] COMMUNITY T VISIT HOSPITAL MODERATE SEVERITY HOSPITAL [facility] - 9 9 N OUTPATIEN [facility] EMERGENCY 24863 [facility], 9 9 VINEET ELVIS Gregg [facility] T VISIT PHYS INC HIGH/URGE NT SEVERITY EMERGENCY 96671 [facility] RACE, 8 8 VINEET MICHELLE Collazo DEPARTMEN EMERGENCY T VISIT PHYS INC HIGH/URGE NT SEVERITY EMERGENCY 29868 [facility], 8 8 VINEET PADMA [facility] EMERGENCY A T VISIT PHYS INC MODERATE SEVERITY HOSPITAL [facility] - 8 8 N OUTPATIEN [facility] EMERGENCY 80775 [facility] 8 8 VINEET - PRAVEEN [facility] EMERGENCY CELESTINO T VISIT PHYS INC M HIGH/URGE NT SEVERITY EMERGENCY 40647 [facility] 8 8 N [facility] COMMUNITY T VISIT HOSPITAL MODERATE SEVERITY OFFICE 23560 Dandy BENNETT 8 8 JOSE Andrade T VISIT PSC 15 MINUTES HOSPITAL [facility] - 8 8 N OUTPATIEN COMMUNITY T HOSPITAL EMERGENCY 51045 [facility], 8 8 VINEET [facility] EMERGENCY A T VISIT [facility] HIGH/URGE NT SEVERITY EMERGENCY 45969 [facility] [address] [facility] T VISIT [facility] LOW/MODER SEVERITY OFFICE 39952 Dandy BENNETT 8 8 JOSE Andrade T VISIT PSC 15 MINUTES EMERGENCY 40635 JUAN JOSE 8 8 [facility] T VISIT MODERATE SEVERITY HOSPITAL JUAN JOSE - [address] [facility] T OFFICE 30954 Dandy BENNETT 8 8 JOSE Nix VISIT PSC 25 MINUTES
--- OUTSIDE RECORDS SUMMARY | 2017-06-07 05:23 | External Medical Summary Rpt | CCD ---
Demographics Preferred Language Honduran Marital Status Unknown Latter Day Affiliation Unknown Race Unknown Ethnic Group Unknown Author Author , ZEYAD JEFFERS Address Unknown Phone Immunization No patient found.
--- OUTSIDE RECORDS SUMMARY | 2017-06-07 05:23 | External Medical Summary Rpt | CCD ---
Demographics Preferred Language [place]ine[place] Marital Status Unknown Oriental Orthodox Affiliation Unknown Race Unknown Ethnic Group Unknown Author Author , ZEYAD JEFFERS Address Unknown Phone Immunization No patient found.
[2017-06-07 05:29] LABS: URINE BILIRUBIN - DIPSTICK NEGATIVE (NEG); URINE BLOOD NEGATIVE (NEG)
[2017-06-07 05:34] LABS: BUN 12 mg/dL (7-18)
[2017-06-07 05:35] LABS: GFR (ESTIMATED) 69 ML/MIN (59-)
[2017-06-07 05:35] LABS: AMPHETAMINES/METAMPHETAMINES NEGATIVE ng/mL (<1000)
--- NOTE | 2017-06-07 05:46 | Emergency Room Report ---
History of Present Illness Time Seen by 0544 Presenting Problem in Triage Pt arrived:Walked Presenting Problem:PRESENTS TO ED WITH C/O CHEST TIGHTNESS AND ANXIETY AFTER HAVING DOMESTIC PROBLEMS WITH SPOUSE. WANTS TO BE TESTED FOR DRUGS ETC BECAUSE SHE TOOK UNKNOWN MED THAT HE GAVE HER LAST PM AND SHE HAS FELT BAD SINCE. STATES HE IS A HEROIN ADDICT AND TOLD HER HE WAS GIVING HER SUBOXONE. 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 N Clinical Suspician of Infection? N Mental Status: 1 - Regular (Normal Baseline) Sepsis Risk:Severe Sepsis Risk Have you (or family members/close friends) recently traveled outside the [place]? N If Yes, where/when: Have you had exposure to infectious disease within the past month? N TB? Other? Specify: Source patient, RN notes reviewed, RN/MD Exam Limitations no limitations Comment This is a 41-year-old lady arriving to the emergency room with anxiety, insomnia and palpitations after having a verbal altercation with her . Patient stated that she found out that her is bisexual approximate 6 months ago. She had an argument with at home, just prior to arrival, stating she wants to now filed for divorce. Patient has any chest pain or shortness of breath, states she "can't sleep". ALLERGIES Coded Allergies: codeine (Severe, 12/06/15) penicillin G (Mild, 12/06/15) History Medical History General CAD? No Angina: No CA: No Hypertension? Yes Hyperlipidemia? Yes CHF? No DVT? No PE? No COPD? No Asthma? No Anemia? No GERD? No Gastric ulcers? No GI Bleed? No Hernia? No Thyroid Problems? No Hypothyroidism? No CVA? No Seizures? No Diabetes? No Insulin Dependent: No Insulin Pump: No Home FSBS? No Renal Insuffiency? No End Stage Renal Disease? No UTI? No Stones? No BPH? No GB Disease: No Nephritic Syndrome? No Asplenia? No Hepatitis? No Sickle Cell Disease? No Arthritis? No Migraines? No Cataracts? No Glaucoma? No MRSA? No HIV? No TB? No Anxiety? No Depression? No Cancer? No More? 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 No: respiratory distress. Lung Sounds bilateral: normal breath sounds, lungs clear. 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 No Comment 06:05am-patient reevaluated, appears in no acute distress, denies any further pains. Now her heart rate is down to 88bpm, with patient talking to me while using a cell phone in front of me. Patient reassured, she wants something "to help me sleep". Patient advised to avoid stressful situations and follow-up with PCP as soon as possible. Results/Orders Laboratory Tests 06/07/17 0515: Opiates Screen NEGATIVE, Urine Methadone Screen NEGATIVE, Barbiturates NEGATIVE, Phencyclidine Screen NEGATIVE, Amphetamines Screen NEGATIVE, Benzodiazepines Screen POSITIVE H, Cocaine Screen NEGATIVE, Marijuana (THC) Screen NEGATIVE, Urine Color YELLOW, Urine Appearance CLEAR, Urine pH 6.0, Ur Specific Tappen >= 1.030, Urine Protein NEGATIVE, Urine Ketones TRACE H, Urine Blood NEGATIVE, Urine Nitrate NEGATIVE, Urine Bilirubin NEGATIVE, Urine Urobilinogen 0.2, Ur Leukocyte Esterase NEGATIVE, Urine WBC 3-5, Ur Squamous Epith Cells 5-10, Urine Glucose NEGATIVE 06/07/17 0450: Sodium 137, Potassium 3.8, Chloride 103, Carbon Dioxide 26, BUN 12, Creatinine 0.9, Estimated Creat Clear 106, Estimated GFR (MDRD) 69, Glucose 132 H, Calcium 9.5, Total Bilirubin 0.6, AST 61 H, ALT 85 H, Alkaline Phosphatase 100, Creatine Kinase 184, CK-MB (CK-2) Rel Index 0.4, CK and CKMB Interp 0.8, Troponin I < 0.02, Total Protein 8.6 H, Albumin 4.4, Globulin 4.2 H, Albumin/ Globulin Ratio 1.0 L, WBC 9.0, RBC 4.51, Hgb 13.2, Hct 40.2, MCV 89.1, RDW 12.6 , Plt Count 323, MPV 8.1, Gran % 70.1, Gran # 6.3, Lymphocytes % 24.0, Monocytes % 5.1, Eosinophils % 0.6, Basophils % 0.3, Lymphocytes # 2.2, Monocytes # 0.5, Eosinophils # 0.1, Basophils # 0.0, PUBS MCHC 33.0, MCH 29.4 Current Medication Orders Sig/Meme Start time Last Medication Dose Route Stop Time Status Admin Aspirin 0 .STK-MED ONE 06/07 501 DC .ROUTE Aspirin 324 MG ONCE ONE 06/07 500 DC 06/07 PO 06/07 501 0504 Orders Procedure Date/time Status URINALYSIS/COMPLETE 06/07 456 Complete URINE 06/07 456 Complete DRUG ABUSE SCREEN (TRIAGE) 06/07 456 Complete ELECTROCARDIOGRAM REQUEST 06/07 455 Active IV SALINE LOCK 06/07 455 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 of ischemic chgs, no ectopy , normal QRS, normal MO, no EKG for comparison, non-spec. ST/Twave chgs, ST elevation, ST depression, LBBB, RBBB, ectopy, abnormal Q waves Departure Departure Time of Disposition 05 Disposition DC Home or Self Care(routine) Clinical Impression Primary Impression: Anxiety Secondary Impressions: Insomnia, Palpitations Condition STABLE Patient Instructions DI for Anxiety -- Adult, DI for Insomnia, DI for Palpitations Additional Instructions Please take the medication prescribed as needed, for insomnia. Follow-up with PCP if not better within 2 days. Discharge Counseling Counseled pt/family regarding diagnosis, test results, medications/RX, home care, follow up needs Comment Please take the medication prescribed as needed, for insomnia. Follow-up with PCP if not better within 2 days. Prescriptions Current Visit Scripts Ramelteon (Rozerem) 8 MG PO QHS #30 TAB ED [place] 0604
--- NOTE | 2017-06-07 05:46 | Emergency Room Report ---
History of Present Illness Time Seen by [id number] Presenting Problem in Triage Pt arrived:Walked Presenting Problem:PRESENTS TO ED WITH C/O CHEST TIGHTNESS AND ANXIETY AFTER HAVING DOMESTIC PROBLEMS WITH SPOUSE. WANTS TO BE TESTED FOR DRUGS ETC BECAUSE SHE TOOK UNKNOWN MED THAT HE GAVE HER LAST PM AND SHE HAS FELT BAD SINCE. STATES HE IS A HEROIN ADDICT AND TOLD HER HE WAS GIVING HER SUBOXONE. 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 N Clinical Suspician of Infection? N Mental Status: 1 - Regular (Normal Baseline) Sepsis Risk:Severe Sepsis Risk Have you (or family members/close friends) recently traveled outside the [place]? N If Yes, where/when: Have you had exposure to infectious disease within the past month? N TB? Other? Specify: Source patient, RN notes reviewed, RN/MD Exam Limitations no limitations Comment This is a 41-year-old lady arriving to the emergency room with anxiety, insomnia and palpitations after having a verbal altercation with her . Patient stated that she found out that her is bisexual approximate 6 months ago. She had an argument with at home, just prior to arrival, stating she wants to now filed for divorce. Patient has any chest pain or shortness of breath, states she "can't sleep". ALLERGIES Coded Allergies: codeine (Severe, 12/06/15) penicillin G (Mild, 12/06/15) History Medical History General CAD? No Angina: No MN: No Hypertension? Yes Hyperlipidemia? Yes CHF? No DVT? No PE? No COPD? No Asthma? No Anemia? No GERD? No Gastric ulcers? No GI Bleed? No Hernia? No Thyroid Problems? No Hypothyroidism? No CVA? No Seizures? No Diabetes? No Insulin Dependent: No Insulin Pump: No Home FSBS? No Renal Insuffiency? No End Stage Renal Disease? No UTI? No Stones? No BPH? No GB Disease: No Nephritic Syndrome? No Asplenia? No Hepatitis? No Sickle Cell Disease? No Arthritis? No Migraines? No Cataracts? No Glaucoma? No MRSA? No HIV? No TB? No Anxiety? No Depression? No Cancer? No More? 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 No: respiratory distress. Lung Sounds bilateral: normal breath sounds, lungs clear. 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 No Comment 06:05am-patient reevaluated, appears in no acute distress, denies any further pains. Now her heart rate is down to 88bpm, with patient talking to me while using a cell phone in front of me. Patient reassured, she wants something "to help me sleep". Patient advised to avoid stressful situations and follow-up with PCP as soon as possible. Results/Orders Laboratory Tests 06/07/17 0515: Opiates Screen NEGATIVE, Urine Methadone Screen NEGATIVE, Barbiturates NEGATIVE, Phencyclidine Screen NEGATIVE, Amphetamines Screen NEGATIVE, Benzodiazepines Screen POSITIVE H, Cocaine Screen NEGATIVE, Marijuana (THC) Screen NEGATIVE, Urine Color YELLOW, Urine Appearance CLEAR, Urine pH 6.0, Ur Specific [place] >= 1.030, Urine Protein NEGATIVE, Urine Ketones TRACE H, Urine Blood NEGATIVE, Urine Nitrate NEGATIVE, Urine Bilirubin NEGATIVE, Urine Urobilinogen 0.2, Ur Leukocyte Esterase NEGATIVE, Urine WBC 3-5, Ur Squamous Epith Cells 5-10, Urine Glucose NEGATIVE 06/07/17 0450: Sodium 137, Potassium 3.8, Chloride 103, Carbon Dioxide 26, BUN 12, Creatinine 0.9, Estimated Creat Clear 106, Estimated GFR (MDRD) 69, Glucose 132 H, Calcium 9.5, Total Bilirubin 0.6, AST 61 H, ALT 85 H, Alkaline Phosphatase 100, Creatine Kinase 184, CK-MB (CK-2) Rel Index 0.4, CK and CKMB Interp 0.8, Troponin I < 0.02, Total Protein 8.6 H, Albumin 4.4, Globulin 4.2 H, Albumin/ Globulin Ratio 1.0 L, WBC 9.0, RBC 4.51, Hgb 13.2, Hct 40.2, MCV 89.1, RDW 12.6 , Plt Count 323, MPV 8.1, Gran % 70.1, Gran # 6.3, Lymphocytes % 24.0, Monocytes % 5.1, Eosinophils % 0.6, Basophils % 0.3, Lymphocytes # 2.2, Monocytes # 0.5, Eosinophils # 0.1, Basophils # 0.0, PUBS MCHC 33.0, MCH 29.4 Current Medication Orders Sig/Meme Start time Last Medication Dose Route Stop Time Status Admin Aspirin 0 .STK-MED ONE 06/07 501 DC .ROUTE Aspirin 324 MG ONCE ONE 06/07 500 DC 06/07 PO 06/07 501 0504 Orders Procedure Date/time Status URINALYSIS/COMPLETE 06/07 456 Complete URINE 06/07 456 Complete DRUG ABUSE SCREEN (TRIAGE) 06/07 456 Complete ELECTROCARDIOGRAM REQUEST 06/07 455 Active IV SALINE LOCK 06/07 455 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 of ischemic chgs, no ectopy , normal QRS, normal IN, no EKG for comparison, non-spec. ST/Twave chgs, ST elevation, ST depression, LBBB, RBBB, ectopy, abnormal Q waves Departure Departure Time of Disposition 05 Disposition DC Home or Self Care(routine) Clinical Impression Primary Impression: Anxiety Secondary Impressions: Insomnia, Palpitations Condition STABLE Patient Instructions DI for Anxiety -- Adult, DI for Insomnia, DI for Palpitations Additional Instructions Please take the medication prescribed as needed, for insomnia. Follow-up with PCP if not better within 2 days. Discharge Counseling Counseled pt/family regarding diagnosis, test results, medications/RX, home care, follow up needs Comment Please take the medication prescribed as needed, for insomnia. Follow-up with PCP if not better within 2 days. Prescriptions Current Visit Scripts Ramelteon (Rozerem) 8 MG PO QHS #30 TAB ED Critical Care Critical Care No at 0604
--- NOTE | 2017-06-07 05:49 | RADIOLOGY REPORT PS360 ---
CHEST(2 VIEWS-NOT PORTABLE) HISTORY: Chest pain CP ORDERING PHYSICIAN: Farhat Rendon MD PATIENT AGE: 41 years COMPARISON: 07/11/2012 FINDINGS: The cardiomediastinal silhouette and pulmonary vascularity are within normal limits. The lungs are clear without infiltrates, suspicious nodules, or pleural effusions. No acute bony abnormalities. IMPRESSION: Negative chest, no acute finding
[2017-06-07] MEDS ORDERED: ROZEREM8 MG PO (05:56)
[2017-06-07 06:17] VITALS: BP 120/63
== END 2017-06-07 06:18 | disposition home or self-care (01) ==
LOC: ER 04:45
PROVIDERS: Emergency Medicine
DX: F41.9 Anxiety disorder, unspecified (principal); G47.00 Insomnia, unspecified; R00.2 Palpitations; I10 Essential (primary) hypertension; Z88.5 Allergy status to narcotic agent; Z88.0 Allergy status to penicillin